=== PATIENT | male | born 1950 | race Caucasian/White ===

== ENCOUNTER 2016-09-30 17:16 | Observation (INO) | payer OTHER ==
[2016-09-30] MEDS ORDERED: RX INFO: IV CONTRAST WAS GIVEN 1 EACH MISC MISCELLANE PRN (18:05)
[2016-09-30] MEDS ORDERED: ONDANSETRON 4 MG/2 ML VIAL IVP STA ×2 (18:05→19:33)
[2016-09-30] MEDS ORDERED: MORPHINE SULFATE 4 MG/ML SYRINGE IVP STA ×2 (18:05→19:33)
[2016-09-30] MEDS ORDERED: DICYCLOMINE 20 MG TAB PO STA (18:05)
--- NOTE | 2016-09-30 18:53 | XR ---
EXAMINATION TYPE: XR chest 2V DATE OF EXAM: 09/30/2016 6:44 PM COMPARISON: NONE HISTORY: Cough. TECHNIQUE: Frontal and lateral views of the chest are obtained. FINDINGS: There is chronic parenchymal change without suspicious focal air space opacity, pleural ef fusion, or pneumothorax seen. The cardiac silhouette size is within normal limits. The osseous str uctures are intact. Cholecystectomy clips are noted on lateral view. IMPRESSION: No suspicious acute infiltrate.
[2016-09-30 18:59] LABS: Basophils % (A) 1 %; CH 29.1; CHCM 35.1; Eosinophils # (A) 0.1 k/uL (0-0.7); Eosinophils % (A) 2 %; HCT 42.9 % (39.0-53.0); HDW 3.41; HGB 14.6 gm/dL (13.0-17.5); Luc # (Auto) 0.24; Luc % (Auto) 4; Lymphocytes % (A) 14 %; MCH 28.5 pg (25.0-35.0); MCHC 34.1 g/dL (31.0-37.0); MCV 83.5 fL (80.0-100.0); Monocytes # (A) 0.6 k/uL (0-1.0); Monocytes % (A) 8 %; Neutrophils % (A) 72 %; Poikilocytosis Slight; RBC 5.14 m/uL (4.30-5.90); RDW 14.5 % (11.5-15.5); WBC (Perox) 6.93
--- NOTE | 2016-09-30 19:00 | ED ---
Abdominal Pain HPI - General Chief Complaint: Abdominal Pain Stated Complaint: Abd Pain Time Seen by Provider: 09/30/16 17:46 Source: patient Mode of arrival: ambulatory Limitations: no limitations - History of Present Illness Initial Comments: The patient is a 66-year-old male who presents to the ED with a chief complaint of abdominal pain. Patient states that the pain is located in the left lower quadrant. He describes it as crampy in nature. He states that sometimes it is associated with sharp pains. Patient states that the pain has been associated with loose bowel movements. He states that he has also had the urge to go to the bathroom but felt like he has been unable to have large bowel movements. Patient denies any history of diverticulitis. Notes that he does have a history of colonoscopy with evidence of diverticulosis. Patient has a history of hepatitis C status post liver transplant. His transplant doctor is Dr. Rdz from [facility]. He follows with Dr. Guerrero from Gastroenterology here in [place]. Patient notes that he has not had any fevers or chills. He does also notes that he's had an increased cough recently. He states that he's been taking his Lasix as directed. Patient denies any alcohol use. He denies any smoking. Denies any sick contacts. Denies any recent antibiotic use. Denies any history of C. diff. - Related Data Home Medications Medication Instructions Recorded Confirmed Aspirin 81 mg PO HS 07/04/14 09/30/16 Cetirizine HCl [Zyrtec] 10 mg PO QAM 07/04/14 09/30/16 Tamsulosin HCl [Flomax] 0.4 mg PO HS 07/04/14 09/30/16 Atorvastatin Calcium [Lipitor] 20 mg PO QAM 09/30/16 09/30/16 Cholecalciferol [Vitamin D3] 2,000 unit PO DAILY 09/30/16 09/30/16 Finasteride [Proscar] 5 mg PO DAILY 09/30/16 09/30/16 Furosemide [Lasix] 20 mg PO DAILY PRN 09/30/16 09/30/16 Insulin Aspart (For Pump) [NovoLOG 0.01 unit SQ-PUMP CONTINUOUS 09/30/16 (For Pump)] Magnesium Oxide [Mag-Ox] 1,200 mg PO BID 09/30/16 09/30/16 Metoprolol Tartrate [Lopressor] 12.5 mg PO BID 09/30/16 09/30/16 Multivitamins, Thera [Multivitamin 1 tab PO DAILY 09/30/16 09/30/16 (formulary)] [place]-3 Fatty Acids/Fish Oil [Fish 2 cap PO DAILY 09/30/16 09/30/16 Oil 1,000 mg Softgel] Omeprazole 20 mg PO AC-BID 09/30/16 09/30/16 Tacrolimus [Prograf] 0.5 mg PO Q12H 09/30/16 09/30/16 Ursodiol [Actigall] 300 mg PO BID 09/30/16 09/30/16 Zortress 0.75mg 0.75 mg PO HS 09/30/16 09/30/16 Zortress 0.75mg 1.5 mg PO QAM 09/30/16 09/30/16 Allergies Allergy/AdvReac Type Severity Reaction Status Date / Time nifedipine [From Procardia] AdvReac Swelling Verified 09/30/16 22:45 Review of Systems ROS Statement: Those systems with pertinent positive or pertinent negative responses have been documented in the HPI. ROS Other: All systems not noted in ROS Statement are negative. Constitutional: Denies: fever, chills, weakness Eyes: Denies: eye pain ENT: Denies: ear pain, throat pain, dental pain Respiratory: Reports: cough. Denies: dyspnea, wheezes, hemoptysis, stridor Cardiovascular: Denies: chest pain, palpitations Endocrine: Denies: fatigue Gastrointestinal: Reports: abdominal pain (llq), nausea. Denies: vomiting, diarrhea, constipation Genitourinary: Denies: urgency, dysuria, frequency, hematuria Musculoskeletal: Denies: back pain Skin: Denies: rash, lesions Neurological: Denies: headache, weakness Psychiatric: Denies: anxiety, depression Past Medical History Past Medical History: Coronary Artery Disease (CAD), Cancer, Chest Pain / Angina , COPD, Diabetes Mellitus, Hypertension, Liver Disease, Prostate Disorder, Sleep Apnea/CPAP/BIPAP Additional Past Medical History / Comment(s): CPAP, hx 40%blockage heart, recent episode of chest pain while shoveling snow, insulin pump, hep C, skin cancer on leg History of Any Multi-Drug Resistant Organisms: None Reported Past Surgical History: Orthopedic Surgery Past Anesthesia/Blood Transfusion Reactions: No Reported Reaction Past Psychological History: No Psychological Hx Reported Smoking Status: Former smoker Past Alcohol Use History: None Reported Past Drug Use History: None Reported - Past Family History mother Family Medical History: Cancer Additional Family Medical History / Comment(s): ovarian Father Family Medical History: Congestive Heart Failure (CHF), Coronary Artery Disease (CAD) Additional Family Medical History / Comment(s): from CHF General Exam Limitations: no limitations General appearance: alert, in no apparent distress Head exam: Present: atraumatic, normocephalic Eye exam: Present: normal appearance, PERRL Pupils: Present: normal accommodation ENT exam: Present: normal exam, mucous membranes dry Neck exam: Present: normal inspection, full ROM Respiratory exam: Present: other (crackles appreciated bilaterally). Absent: wheezes, rales, rhonchi, stridor Cardiovascular Exam: Present: regular rate, normal rhythm GI/Abdominal exam: Present: soft, tenderness (LLQ), guarding (mild voluntary). Absent: distended, rebound, rigid Extremities exam: Present: normal inspection, full ROM. Absent: tenderness, pedal edema Neurological exam: Present: alert, oriented X3 Psychiatric exam: Present: normal affect, normal mood Skin exam: Present: warm, dry, intact Course Vital Signs 09/30/16 09/30/16 09/30/16 17:40 17:42 21:28 Temperature 99.1 F 98.0 F Pulse Rate 90 70 84 Respiratory 20 16 16 Rate Blood Pressure 181/84 137/83 156/93 O2 Sat by Pulse 98 99 98 Oximetry Medical Decision Making - Medical Decision Making Patient is a 66-year-old male who presents to the ED with a chief complaint of abdominal pain. Patient states that the pain is located in left lower quadrant. It has been present since earlier today. It has been gradually worsening over that time. Patient notes that he did have sensation noted to have a bowel movement yesterday. He is not a significant bowel movement since his discomfort began. Patient denies any dysuria or hematuria. Denies any history of ureteral stone. Patient cites nausea but denies any episodes of vomiting. Patient has known history of hepatitis C status post multiple therapies. Patient is also status post liver transplant. She has known history of diverticulosis. Check CT abdomen and pelvis to rule out possibility of diverticulitis. Patient is also on rejection medications that high risk of other infectious process. Patient will be tested for C. diff, though I do have low suspicion that this is the underlying cause of the patient's problems. Provide patient with Morphine, Bentyl, Zofran. Hold on IV fluids until after chest x-ray is returned. 7:36 PM The patient states that his pain is somewhat improved after receiving Morphine and Zofran but has not completely resolved. Patient currently going to CT. Will re-dose with pain medication once he returns. 8:56 PM Updated patient and his of overall findings. There is evidence of diverticulitis on CT Abd/Pelvis. Given that the patient is on chronic immunosuppressant medication secondary to his transplant history, I believe that the patient would benefit from hospitalization. Patient will be treated with Rocephin and Flagyl. [place] and Dilaudid for pain control. Patient and his are amenable to this plan. Spoke with Elva, the PA for Dr. Mccord, who accepts admission of the patient. - Lab Data Result diagrams: 09/30/16 18:25 09/30/16 18:25 Lab Results 09/30/16 09/30/16 09/30/16 Range/Units 18:25 18:25 18:25 WBC 7.0 (3.8-10.6) k/uL RBC 5.14 (4.30-5.90) m/uL Hgb 14.6 (13.0-17.5) gm/dL Hct 42.9 (39.0-53.0) % MCV 83.5 (80.0-100.0) fL MCH 28.5 (25.0-35.0) pg MCHC 34.1 (31.0-37.0) g/dL RDW 14.5 (11.5-15.5) % Plt Count 178 (150-450) k/uL Neutrophils % 72 % Lymphocytes % 14 % Monocytes % 8 % Eosinophils % 2 % Basophils % 1 % Neutrophils # 5.0 (1.3-7.7) k/uL Lymphocytes # 1.0 (1.0-4.8) k/uL Monocytes # 0.6 (0-1.0) k/uL Eosinophils # 0.1 (0-0.7) k/uL Basophils # 0.0 (0-0.2) k/uL Poikilocytosis Slight Sodium 140 (137-145) mmol/L Potassium 3.8 (3.5-5.1) mmol/L Chloride 106 (98-107) mmol/L Carbon Dioxide 27 (22-30) mmol/L Anion Gap 7 mmol/L BUN 17 (9-20) mg/dL Creatinine 0.97 (0.66-1.25) mg/dL Est GFR (MDRD) Af Amer >60 (>60 ml/min/1.73 sqM) Est GFR (MDRD) Non-Af >60 (>60 ml/min/1.73 sqM) Glucose 149 H (74-99) mg/dL Plasma Lactic Acid Woo 1.3 (0.7-2.0) mmol/L Calcium 8.7 (8.4-10.2) mg/dL Magnesium 1.9 (1.6-2.3) mg/dL Total Bilirubin 0.8 (0.2-1.3) mg/dL AST 56 (17-59) U/L ALT 73 H (21-72) U/L Alkaline Phosphatase 112 (38-126) U/L Total Protein 6.5 (6.3-8.2) g/dL Albumin 3.6 (3.5-5.0) g/dL Urine Color Urine Appearance (Clear) Urine pH (5.0-8.0) Ur Specific [place] (1.001-1.035) Urine Protein (Negative) Urine Glucose (UA) (Negative) Urine Ketones (Negative) Urine Blood (Negative) Urine Nitrite (Negative) Urine Bilirubin (Negative) Urine Urobilinogen (<2.0) mg/dL Ur Leukocyte Esterase (Negative) Urine RBC (0-5) /hpf 09/30/16 Range/Units 18:25 WBC (3.8-10.6) k/uL RBC (4.30-5.90) m/uL Hgb (13.0-17.5) gm/dL Hct (39.0-53.0) % MCV (80.0-100.0) fL MCH (25.0-35.0) pg MCHC (31.0-37.0) g/dL RDW (11.5-15.5) % Plt Count (150-450) k/uL Neutrophils % % Lymphocytes % % Monocytes % % Eosinophils % % Basophils % % Neutrophils # (1.3-7.7) k/uL Lymphocytes # (1.0-4.8) k/uL Monocytes # (0-1.0) k/uL Eosinophils # (0-0.7) k/uL Basophils # (0-0.2) k/uL Poikilocytosis Sodium (137-145) mmol/L Potassium (3.5-5.1) mmol/L Chloride (98-107) mmol/L Carbon Dioxide (22-30) mmol/L Anion Gap mmol/L BUN (9-20) mg/dL Creatinine (0.66-1.25) mg/dL Est GFR (MDRD) Af Amer (>60 ml/min/1.73 sqM) Est GFR (MDRD) Non-Af (>60 ml/min/1.73 sqM) Glucose (74-99) mg/dL Plasma Lactic Acid Woo (0.7-2.0) mmol/L Calcium (8.4-10.2) mg/dL Magnesium (1.6-2.3) mg/dL Total Bilirubin (0.2-1.3) mg/dL AST (17-59) U/L ALT (21-72) U/L Alkaline Phosphatase (38-126) U/L Total Protein (6.3-8.2) g/dL Albumin (3.5-5.0) g/dL Urine Color Yellow Urine Appearance Clear (Clear) Urine pH 6.0 (5.0-8.0) Ur Specific [place] 1.014 (1.001-1.035) Urine Protein 1+ H (Negative) Urine Glucose (UA) Negative (Negative) Urine Ketones Negative (Negative) Urine Blood Negative (Negative) Urine Nitrite Negative (Negative) Urine Bilirubin Negative (Negative) Urine Urobilinogen <2.0 (<2.0) mg/dL Ur Leukocyte Esterase Negative (Negative) Urine RBC <1 (0-5) /hpf Disposition Clinical Impression: Acute diverticulitis, Hx of liver transplant Disposition: ADMITTED IP TO THIS [facility] Condition: Good Decision to Admit Reason: Admit from EC Decision Date: 09/30/16 Decision Time: 20:56
[2016-09-30 19:05] LABS: Appearance,Urine Clear (Clear); Bilirubin,Urine Negative (Negative); Glucose,Urine (UA) Negative (Negative); Ketones,Urine Negative (Negative); Leukocyte Esterase,Urine Negative (Negative); Nitrite,Urine Negative (Negative); Particle Count 447; Protein,Urine 1+ (Negative); RBC,Urine <1 /hpf (0-5); Specific Gravity,Urine 1.014 (1.001-1.035); UA Billing (MACRO vs. MICRO) MICRO; Urobilinogen,Urine <2.0 mg/dL (<2.0)
[2016-09-30 19:11] LABS: ALT 73 U/L (21-72); AST 56 U/L (17-59); Alkaline Phosphatase 112 U/L (38-126); Anion Gap 7 mmol/L; Blood Urea Nitrogen 17 mg/dL (9-20); Calcium 8.7 mg/dL (8.4-10.2); Carbon Dioxide 27 mmol/L (22-30); Chloride 106 mmol/L (98-107); Glucose 149 mg/dL (74-99); Magnesium 1.9 mg/dL (1.6-2.3); Non-African American GFR(MDRD) >60 (>60 ml/min/1.73 sqM); Potassium 3.8 mmol/L (3.5-5.1); Sodium 140 mmol/L (137-145); Total Bilirubin 0.8 mg/dL (0.2-1.3); Total Protein 6.5 g/dL (6.3-8.2)
--- NOTE | 2016-09-30 20:14 | CT ---
EXAMINATION TYPE: CT abdomen pelvis w con DATE OF EXAM: 09/30/2016 7:49 PM COMPARISON: MRI liver February 18, 2011 HISTORY: Left Lower Quadrant pain with diarrhea CT DLP: 1516.2 mGycm, Automated Exposure Control for Dose Reduction was Utilized. CONTRAST: CT scan of the abdomen and pelvis is performed without oral and with IV Contrast, patient injected wi th 100 mL of Omnipaque 300. FINDINGS: LUNG BASES: Scattered areas of atelectasis felt present in both lung bases. Some coronary artery calc ification in the proximal RCA is seen. LIVER/GB: There is nonspecific 1.6 cm hypodense lesion right hepatic lobe on axial image 17. This is not clearly identified on prior MRI but liver protocol was suboptimal at that time. Consider nonemerg ent follow-up. Cholecystectomy clips are seen. There are multiple surgical clips anterior to the IVC. Mild fat stranding at level of anjali hepatis is seen, nonspecific finding, etiology uncertain. PANCREAS: No significant abnormality is seen. SPLEEN: No significant abnormality is seen. ADRENALS: No significant abnormality is seen. KIDNEYS: No significant abnormality is seen. BOWEL: Evaluation bowel is suboptimal secondary to lack of enteric contrast. Stomach is poorly disten ded. There is no suspicious small bowel dilatation. Normal-appearing appendix is seen from cecum. The re is mild to moderate wall thickening in the left and sigmoid colon extending to the rectum. Some di verticula are seen most prominent in the sigmoid colon. An acute long segment colitis needs to BE con sidered. Minimal surrounding fat stranding is present in the sigmoid colon at level of most prominent diverticula more prominent right of midline. No pneumoperitoneum is seen. No well-formed fluid colle ction or abscess is noted. PROSTATE/SEMINAL VESICLES: No gross abnormality seen. LYMPH NODES: No greater than 1cm abdominal or pelvic lymph nodes are appreciated. OSSEOUS STRUCTURES: Multilevel spurring throughout the spine is present. Facet arthropathy lower lumb ar levels is seen. OTHER: Mild to moderate calcified atherosclerotic change of aorta and branch vessels is seen. IMPRESSION: 1. A mild acute colitis suspected from splenic flexure to rectum, differential includes inflammatory, ischemic, and infectious etiologies. More focal mild acute diverticulitis is suspected in the mid si gmoid colon the lower abdomen/upper pelvis. Clinical correlation advised. 2. New nonspecific 1.7 cm low dense lesion right hepatic dome, consider further investigation with no nemergent multiphasic CT or MRI liver protocol to further evaluate.
[2016-09-30] MEDS ORDERED: metroNIDAZOLE-NS PMX 500 MG in SALINE 1 100ML.BAG IVPB STA (20:51)
[2016-09-30] MEDS ORDERED: SODIUM CHLORIDE 0.9% 1,000 ML IV STA (20:52)
[2016-09-30] MEDS ORDERED: ONDANSETRON 4 MG/2 ML VIAL IVP PRN (20:56)
[2016-09-30] MEDS ORDERED: NALOXONE 0.4 MG/ML 1 ML VIAL IV PRN (20:56)
[2016-09-30] MEDS ORDERED: HYDROcodone/APAP 5-325MG 1 EACH TAB PO PRN (20:56)
[2016-09-30 22:17] VITALS: BMI 32.1
[2016-09-30] MEDS: HYDROmorphone 1 MG/ML 1 ML SYRINGE IV PRN (23:02)
[2016-09-30 23:09] LABS: Glucose,Whole Blood 116 mg/dL (75-99)
[2016-10-01] MEDS: HYDROmorphone 1 MG/ML 1 ML SYRINGE IV PRN ×2 (03:08→06:14)
[2016-10-01] MEDS: metroNIDAZOLE-NS PMX 500 MG in SALINE 1 100ML.BAG IVPB SCH ×2 (05:12→12:49)
[2016-10-01 07:35] LABS: Glucose,Whole Blood 106 mg/dL (75-99)
[2016-10-01 07:58] VITALS: BP 127/74; PULSE 79; RESP 14; TEMP 97.5
[2016-10-01] MEDS ORDERED: FUROSEMIDE 20 MG TAB PO PRN (08:46)
[2016-10-01] MEDS ORDERED: Insulin Aspart (For Pump) 100 UNIT/ML VIAL SQ-PUMP SCH (09:00)
[2016-10-01] MEDS ORDERED: PANTOPRAZOLE 40 MG TABLET PO SCH (09:00)
[2016-10-01] MEDS ORDERED: URSODIOL 300 MG CAP PO SCH ×2 (09:00→17:30)
[2016-10-01] MEDS ORDERED: METOPROLOL TARTRATE 12.5 MG TAB PO SCH (09:00)
[2016-10-01] MEDS ORDERED: LORATADINE 10 MG TAB PO SCH (09:00)
[2016-10-01] MEDS ORDERED: NON-FORMULARY DRUG (Omega-3 Fatty Acids/Fish Oil [Fish Oil 1,000 Mg Softgel] 2 CAP) PO SCH (09:00)
[2016-10-01] MEDS ORDERED: ATORVASTATIN 20 MG TAB PO SCH (09:00)
[2016-10-01] MEDS ORDERED: FINASTERIDE 5 MG TAB PO SCH (09:00)
[2016-10-01] MEDS ORDERED: ZORTRESS PO SCH (09:00)
[2016-10-01] MEDS ORDERED: TACROLIMUS 0.5 MG CAP PO SCH (09:00)
[2016-10-01] MEDS ORDERED: MAGNESIUM OXIDE 400 MG TAB PO SCH (09:00)
[2016-10-01 09:37] LABS: INR 1.1 (<1.1); Prothrombin Time 10.7 sec (9.0-12.0)
[2016-10-01 09:43] LABS: ALT 80 U/L (21-72); AST 77 U/L (17-59); Alkaline Phosphatase 168 U/L (38-126); Anion Gap 4 mmol/L; Blood Urea Nitrogen 14 mg/dL (9-20); Calcium 7.8 mg/dL (8.4-10.2); Carbon Dioxide 29 mmol/L (22-30); Chloride 107 mmol/L (98-107); Glucose 164 mg/dL (74-99); Magnesium 1.8 mg/dL (1.6-2.3); Non-African American GFR(MDRD) >60 (>60 ml/min/1.73 sqM); Phosphorous 2.9 mg/dL (2.5-4.5); Potassium 3.8 mmol/L (3.5-5.1); Sodium 140 mmol/L (137-145); Total Bilirubin 1.3 mg/dL (0.2-1.3); Total Protein 5.8 g/dL (6.3-8.2)
[2016-10-01 10:08] LABS: Aty Lym Flag Slight; CHCM 34.6; HCT 40.5 % (39.0-53.0); HDW 3.49; HGB 13.7 gm/dL (13.0-17.5); MCH 28.5 pg (25.0-35.0); MCHC 33.9 g/dL (31.0-37.0); MCV 84.3 fL (80.0-100.0); Mean Platelet Volume 7.3; Poikilocytosis Slight; RDW 14.3 % (11.5-15.5); WBC 4.9 k/uL (3.8-10.6); WBC (Perox) 4.59
[2016-10-01] MEDS ORDERED: INSULIN PUMP ACTIVE INSULIN 1 EACH MISC MISCELLANE PRN (11:05)
[2016-10-01] MEDS ORDERED: INSULIN LISPRO (humaLOG) 300 UNIT/3 ML VIAL SQ PRN (11:05)
[2016-10-01] MEDS ORDERED: INSULIN PUMP BASAL RATES 1 EACH MISC MISCELLANE PRN (11:05)
[2016-10-01] MEDS ORDERED: INSULIN PUMP TARGET GLUCOSE 1 EACH MISC MISCELLANE PRN (11:05)
[2016-10-01] MEDS ORDERED: INSPUCOR MISCELLANE PRN (11:05)
[2016-10-01 11:37] LABS: Add Differential Manual Differential
[2016-10-01 11:42] LABS: Nucleated Red Blood Cells 0 /100 WBC (0-0); Total Cells Counted 100
[2016-10-01] MEDS ORDERED: MULTIVITAMINS, THERA 1 EACH TAB PO SCH (12:00)
[2016-10-01] MEDS ORDERED: CHOLECALCIFEROL 1,000 UNIT TAB PO SCH (12:00)
[2016-10-01 12:02] LABS: Glucose,Whole Blood 117 mg/dL (75-99)
[2016-10-01] MEDS ORDERED: INSULIN PUMP MEAL BOLUS 1 UNIT MISC MISCELLANE SCH (12:30)
--- NOTE | 2016-10-01 14:04 | HP ---
DATE OF ADMISSION: This dictation is both H&P and Discharge Summary. Patient is a 66-year-old, came into the Emergency Department with complaints of left lower quadrant crampy abdominal pain about 9/10 in severity, which improved at this point of time. Patient is found to have diverticulitis and patient was having diarrhea. Patient had one episode of minimal blood in the stools today. Patient's overall diarrhea has improved. Patient has very minimal blood in the stools and patient's pain is improved. Patient was started on Rocephin and metronidazole with improvement in his symptoms. The other incidental finding on the CT was there was a suspicious lesion on the liver. Patient has a liver transplant. Patient had a recent MRI. Patient apparently had scarring. I extensively counseled the patient. Patient needs to be made aware of this scarring. Patient may have scarring of the liver, for which patient underwent an MRI a couple of months ago. Because of that reason, initially ordered MRCP, which I canceled it and I asked him to follow up with transplant specialist in [facility] and make them aware of these and will also follow with medical records from here to [facility]. Patient denied any fever, chills. Patient denied any nausea, vomiting at this point of time. Patient's symptoms significantly improved. Patient will be discharged on one more week of antibiotics. Patient has very minimal elevation of AST and ALT secondary to chronic hep C. Will repeat those labs in about 3 days, make sure they are not going up and patient will be discharged. REVIEW OF SYSTEMS: CONSTITUTIONAL: No fever, no malaise, no fatigue. HEENT: No recent visual problems or hearing problems. Denied any sore throat. CARDIOVASCULAR: No chest pain, orthopnea, PND, no palpitations, no syncope. PULMONARY: No shortness of breath, no cough, no hemoptysis. GASTROINTESTINAL: As described in HPI. NEUROLOGICAL: No headaches, no weakness, no numbness. HEMATOLOGICAL: Denies any bleeding or petechiae. GENITOURINARY: Denies any burning micturition, frequency, or urgency. MUSCULOSKELETAL/RHEUMATOLOGICAL: Denies any joint pain, swelling, or any muscle pain. ENDOCRINE: Denies any polyuria or polydipsia. The rest of the 14 point review of systems is negative. Home medications include: 1. Aspirin. 2. Cetirizine. 3. Tamsulosin. 4. Atorvastatin. 5. Cholecalciferol. 6. Finasteride. 7. Lasix on as-needed basis. 8. Insulin pump. Patient has an insulin pump for diabetes mellitus. 9. Metoprolol. 10. Magnesium oxide. 11. [place]-3 fatty acids. 12. Tacrolimus. 13. Ursodiol. 14. Zortress. ALLERGIES: Allergic to NIFEDIPINE. PAST MEDICAL HISTORY: Significant for coronary artery disease. Patient has hepatocellular carcinoma secondary to hepatitis C and patient is status post embolization, liver transplantation and diabetes mellitus, benign prostatic hypertrophy, sleep apnea, morbid obesity. SOCIAL HISTORY: Former smoker. Quit smoking years ago. Denied any alcohol abuse or any drug abuse. FAMILY HISTORY: Mother had ovarian cancer and father had congestive heart failure, coronary artery disease, from congestive heart failure. PHYSICAL EXAMINATION: Temperature 97.5, pulse of 79, respiratory rate of 14, blood pressure is 127/74, saturating at 97% on room air. GENERAL EXAMINATION: Alert and oriented x3, morbidly obese. HEENT: Pupils are round and equally reacting to light. EOMI. No scleral icterus. No conjunctival pallor. Normocephalic, atraumatic. No pharyngeal erythema. No thyromegaly. CARDIOVASCULAR: S1 and S2 present. No murmurs, rubs, or gallops. PULMONARY: Chest is clear to auscultation, no wheezing or crackles. ABDOMEN: Soft, nontender, nondistended, normoactive bowel sounds. No palpable organomegaly. MUSCULOSKELETAL: No joint swelling or deformity. EXTREMITIES: No cyanosis, clubbing, or pedal edema. NEUROLOGICAL: Gross neurological examination did not reveal any focal deficits. SKIN: No rashes. LABORATORY DATA: CBC, CMP are abnormal for mildly elevated AST and ALT of 77 and 80 respectively. Minimally elevated alkaline phosphatase as well. CT of the abdomen was reviewed, showed some small sigmoid diverticulitis. Chest x-ray did not show any significant abnormality. ASSESSMENT AND PLAN: 1. Mild sigmoid diverticulitis and patient will be discharged on antibiotics as mentioned above. If patient starts having pain again and for more gastrointestinal bleed, patient will need to call Dr. Guerrero's office or come back to ER. 2. Small suspicious lesion in the liver, which is secondary to scarring. Patient is status post hepatic transplant. 3. Hepatocellular carcinoma. History of hepatitis C, chronic hep C for which patient is [place]. 4. Diabetes mellitus for which patient is on insulin pump with very well-controlled blood sugars. 5. Sleep apnea. Patient will continue with his CPAP machine. 6. Hypertension, fairly controlled. Patient will need to continue with his home medications. Patient is on immunosuppressants with tacrolimus and Zortress, post liver transplant that will be managed by liver transplant specialist in [facility] and patient will be discharged today. 7. Benign prostatic hypertrophy. I will repeat liver enzymes in about 3 days. DISCHARGE DIET: Cardiac ADA 1800 and hepatic diet. Follow up with Rico Prabhakra in 3 to 7 days. Follow with [facility] liver specialist in a about a week. Activity as tolerated.
[2016-10-01] MEDS ORDERED: ZORTRESS 0.75 MG PO SCH (21:00)
[2016-10-01] MEDS ORDERED: ASPIRIN 81 MG CHEW PO SCH (21:00)
[2016-10-01] MEDS ORDERED: TAMSULOSIN 0.4 MG CAP.ER.24H PO SCH (21:00)
== END 2016-10-01 14:57 | disposition home or self-care (01) ==
LOC: EC 17:16 → UNDOADMIN 20:56 → 4MS4W 20:56 → INTOOBSV 20:56 → 4MS4W 10-01 11:53 → UNDOADMIN 10-01 11:53
PROVIDERS: ADMIT Internal Medicine; ATTEND Internal Medicine
DX: K57.32 Diverticulitis of large intestine without perforation or abscess without bleeding (principal); Z79.82 Long term (current) use of aspirin; Z79.899 Other long term (current) drug therapy; Z88.8 Allergy status to other drugs, medicaments and biological substances; Z87.891 Personal history of nicotine dependence; I25.10 Atherosclerotic heart disease of native coronary artery without angina pectoris; J44.9 Chronic obstructive pulmonary disease, unspecified; E11.9 Type 2 diabetes mellitus without complications; I10 Essential (primary) hypertension; G47.30 Sleep apnea, unspecified; Z99.89 Dependence on other enabling machines and devices; C44.90 Unspecified malignant neoplasm of skin, unspecified; Z96.41 Presence of insulin pump (external) (internal); Z82.49 Family history of ischemic heart disease and other diseases of the circulatory system; Z94.4 Liver transplant status; B18.2 Chronic viral hepatitis C; E66.01 Morbid (severe) obesity due to excess calories; N40.0 Benign prostatic hyperplasia without lower urinary tract symptoms; C22.0 Liver cell carcinoma; Z68.33 Body mass index [BMI] 33.0-33.9, adult; Z79.4 Long term (current) use of insulin
CPT/HCPCS: 96365; 96366; 96367 ×2; 96376; 96375; 99285; 36415; 80053 ×2; 83605; 83735 ×2; 84100; 85025 ×2; 85610; 81001; 87324; 82105; 71020; 74177; G0378 ×2; J2270; J2405; J0696; J1170 ×2; Q9967

== ENCOUNTER 2016-10-23 19:16 | Observation (INO) | payer OTHER ==
--- NOTE | 2016-10-23 19:45 | ED ---
SOB HPI - General Chief Complaint: Shortness of Breath Stated Complaint: SOB/Chest Pressure Time Seen by Provider: 10/23/16 19:37 Source: patient Mode of arrival: ambulatory Limitations: no limitations - History of Present Illness Initial Comments: This patient is 66-year-old man presenting with complaint of shortness of breath and cough. Patient states that he has been being treated as an outpatient for pneumonia for nearly 2 weeks. He states he is completing his second course of antibiotics. The patient feels that he has not had improvement. Patient's symptoms are worse if he is lying flat or exerting himself, better if he is sitting upright. He has not noted fevers or chills. He states the cough is not productive for the most part. MD Complaint: shortness of breath, cough Onset/Timin -: week(s) Severity: mild Consistency: constant Improves With: upright position Worsens With: lying flat Associated Symptoms: denies other symptoms - Related Data Home Medications Medication Instructions Recorded Confirmed Aspirin 81 mg PO HS 07/04/14 10/23/16 Cetirizine HCl [Zyrtec] 10 mg PO QAM 07/04/14 10/23/16 Tamsulosin HCl [Flomax] 0.4 mg PO HS 07/04/14 10/23/16 Atorvastatin Calcium [Lipitor] 20 mg PO QAM 09/30/16 10/23/16 Cholecalciferol [Vitamin D3] 2,000 unit PO DAILY 09/30/16 10/23/16 Finasteride [Proscar] 5 mg PO DAILY 09/30/16 10/23/16 Furosemide [Lasix] 20 mg PO DAILY PRN 09/30/16 10/23/16 Insulin Aspart (For Pump) [NovoLOG See Protocol SQ-PUMP CONTINUOUS 09/30/16 (For Pump)] Magnesium Oxide [Mag-Ox] 1,200 mg PO BID 09/30/16 10/23/16 Metoprolol Tartrate [Lopressor] 12.5 mg PO BID 09/30/16 10/23/16 Multivitamins, Thera [Multivitamin 1 tab PO DAILY 09/30/16 10/23/16 (formulary)] [place]-3 Fatty Acids/Fish Oil [Fish 2 cap PO DAILY 09/30/16 10/23/16 Oil 1,000 mg Softgel] Omeprazole 20 mg PO AC-BID 09/30/16 10/23/16 Tacrolimus [Prograf] 0.5 mg PO Q12H 09/30/16 10/23/16 Ursodiol [Actigall] 300 mg PO BID 09/30/16 10/23/16 Zortress 0.75mg 0.75 mg PO HS 09/30/16 10/23/16 Zortress 0.75mg 1.5 mg PO QAM 09/30/16 10/23/16 Fluticasone Propionate [Flonase 2 spray EA NOSTRIL QAM 10/23/16 10/23/16 Allergy Relief] Ipratropium-Albuterol Nebulize 3 ml INHALATION RT-QID PRN 10/23/16 10/23/16 [Duoneb 0.5 mg-3 mg/3 ml Soln] Levofloxacin [Levaquin] 500 mg PO DAILY 10/23/16 10/23/16 predniSONE See Taper PO DAILY 10/23/16 10/23/16 Allergies Allergy/AdvReac Type Severity Reaction Status Date / Time nifedipine [From Procardia] AdvReac Swelling Verified 10/23/16 20:02 Review of Systems ROS Statement: Those systems with pertinent positive or pertinent negative responses have been documented in the HPI. ROS Other: All systems not noted in ROS Statement are negative. Constitutional: Reports: weakness (Generalized). Denies: fever, chills Respiratory: Reports: cough, dyspnea. Denies: hemoptysis Cardiovascular: Reports: dyspnea on exertion, orthopnea. Denies: chest pain, palpitations, edema, syncope Gastrointestinal: Denies: abdominal pain, vomiting, diarrhea, melena, hematochezia Genitourinary: Denies: dysuria, hematuria Musculoskeletal: Denies: back pain Skin: Reports: rash Neurological: Denies: headache, weakness, numbness Past Medical History Past Medical History: Coronary Artery Disease (CAD), Cancer, Chest Pain / Angina , COPD, Diabetes Mellitus, Hypertension, Liver Disease, Prostate Disorder, Sleep Apnea/CPAP/BIPAP Additional Past Medical History / Comment(s): CPAP, hx 40%blockage heart, recent episode of chest pain while shoveling snow, insulin pump, hep C, skin cancer on leg History of Any Multi-Drug Resistant Organisms: None Reported Past Surgical History: Orthopedic Surgery Additional Past Surgical History / Comment(s): Liver transplant Past Anesthesia/Blood Transfusion Reactions: No Reported Reaction Past Psychological History: No Psychological Hx Reported Smoking Status: Former smoker Past Alcohol Use History: None Reported Past Drug Use History: None Reported - Past Family History Father Family Medical History: Congestive Heart Failure (CHF), Coronary Artery Disease (CAD) Additional Family Medical History / Comment(s): from CHF mother Family Medical History: Cancer Additional Family Medical History / Comment(s): ovarian General Exam Limitations: no limitations General appearance: alert, in no apparent distress Head exam: Present: atraumatic, normocephalic Eye exam: Present: normal appearance. Absent: scleral icterus, conjunctival injection ENT exam: Present: normal oropharynx Respiratory exam: Present: normal lung sounds bilaterally. Absent: respiratory distress, wheezes, rales, rhonchi, stridor Cardiovascular Exam: Present: regular rate, normal rhythm, normal heart sounds. Absent: systolic murmur, diastolic murmur, rubs, gallop GI/Abdominal exam: Present: soft. Absent: distended, tenderness, guarding, rebound, mass Extremities exam: Present: normal inspection, normal capillary refill. Absent: pedal edema, calf tenderness Back exam: Present: normal inspection. Absent: CVA tenderness (R), CVA tenderness (L) Neurological exam: Present: alert Skin exam: Present: warm, dry, intact, normal color. Absent: rash Course Vital Signs 10/23/16 10/23/16 10/23/16 19:20 21:09 21:19 Temperature 98.7 F Pulse Rate 92 80 88 Respiratory 18 Rate Blood Pressure 190/93 O2 Sat by Pulse 97 Oximetry Medical Decision Making - Lab Data Result diagrams: 10/23/16 19:10 10/23/16 19:10 Lab Results 10/23/16 10/23/16 10/23/16 Range/Units 19:10 19:10 19:10 WBC 10.1 (3.8-10.6) k/uL RBC 5.42 (4.30-5.90) m/uL Hgb 15.6 (13.0-17.5) gm/dL Hct 46.7 (39.0-53.0) % MCV 86.2 (80.0-100.0) fL MCH 28.8 (25.0-35.0) pg MCHC 33.4 (31.0-37.0) g/dL RDW 14.0 (11.5-15.5) % Plt Count 179 (150-450) k/uL Neutrophils % 84 % Lymphocytes % 8 % Monocytes % 6 % Eosinophils % 1 % Basophils % 0 % Neutrophils # 8.5 H (1.3-7.7) k/uL Lymphocytes # 0.8 L (1.0-4.8) k/uL Monocytes # 0.6 (0-1.0) k/uL Eosinophils # 0.1 (0-0.7) k/uL Basophils # 0.0 (0-0.2) k/uL PT 10.2 (9.0-12.0) sec INR 1.0 (<1.1) APTT 21.9 L (22.0-30.0) sec D-Dimer 0.36 (<0.60) mg/L FEU Sodium 139 (137-145) mmol/L Potassium 4.3 (3.5-5.1) mmol/L Chloride 108 H (98-107) mmol/L Carbon Dioxide 20 L (22-30) mmol/L Anion Gap 11 mmol/L BUN 27 H (9-20) mg/dL Creatinine 1.02 (0.66-1.25) mg/dL Est GFR (MDRD) Af Amer >60 (>60 ml/min/1.73 sqM) Est GFR (MDRD) Non-Af >60 (>60 ml/min/1.73 sqM) Glucose 246 H (74-99) mg/dL POC Glucose (mg/dL) (75-99) mg/dL POC Glu [employer] ID Calcium 9.1 (8.4-10.2) mg/dL Total Bilirubin 0.7 (0.2-1.3) mg/dL AST 47 (17-59) U/L ALT 73 H (21-72) U/L Alkaline Phosphatase 78 (38-126) U/L NT-Pro-B Natriuret Pep pg/mL Total Protein 6.6 (6.3-8.2) g/dL Albumin 3.8 (3.5-5.0) g/dL 10/23/16 10/23/16 Range/Units 19:10 21:17 WBC (3.8-10.6) k/uL RBC (4.30-5.90) m/uL Hgb (13.0-17.5) gm/dL Hct (39.0-53.0) % MCV (80.0-100.0) fL MCH (25.0-35.0) pg MCHC (31.0-37.0) g/dL RDW (11.5-15.5) % Plt Count (150-450) k/uL Neutrophils % % Lymphocytes % % Monocytes % % Eosinophils % % Basophils % % Neutrophils # (1.3-7.7) k/uL Lymphocytes # (1.0-4.8) k/uL Monocytes # (0-1.0) k/uL Eosinophils # (0-0.7) k/uL Basophils # (0-0.2) k/uL PT (9.0-12.0) sec INR (<1.1) APTT (22.0-30.0) sec D-Dimer (<0.60) mg/L FEU Sodium (137-145) mmol/L Potassium (3.5-5.1) mmol/L Chloride (98-107) mmol/L Carbon Dioxide (22-30) mmol/L Anion Gap mmol/L BUN (9-20) mg/dL Creatinine (0.66-1.25) mg/dL Est GFR (MDRD) Af Amer (>60 ml/min/1.73 sqM) Est GFR (MDRD) Non-Af (>60 ml/min/1.73 sqM) Glucose (74-99) mg/dL POC Glucose (mg/dL) 177 H (75-99) mg/dL POC Glu [employer] ID [email or web address], Jade Calcium (8.4-10.2) mg/dL Total Bilirubin (0.2-1.3) mg/dL AST (17-59) U/L ALT (21-72) U/L Alkaline Phosphatase (38-126) U/L NT-Pro-B Natriuret Pep 69 pg/mL Total Protein (6.3-8.2) g/dL Albumin (3.5-5.0) g/dL - EKG Data -: EKG Interpreted by Fl EKG shows normal: sinus rhythm (Rate 80 bpm), axis (Normal), intervals (Normal) , QRS complexes (Normal), ST-T waves (Normal) Rate: normal Interpretation: normal EKG Disposition Clinical Impression: Acute exacerbation of chronic obstructive airways disease Disposition: ADMITTED IP TO THIS HOSP Condition: Fair Referrals: Rico Prabhakar MD [Primary Care Provider] - 1-2 days
[2016-10-23] MEDS ORDERED: NITROGLYCERIN OINT 1 INCH/GM PACKET TOPICAL STA (19:58)
[2016-10-23] MEDS ORDERED: NITROGLYCERIN SL TABS 0.4 MG TAB SUBLINGUAL STA (19:58)
--- NOTE | 2016-10-23 20:20 | XR ---
EXAMINATION TYPE: XR chest 2V DATE OF EXAM: 10/23/2016 8:09 PM COMPARISON: 09/30/2016 HISTORY: Cough TECHNIQUE: Frontal and lateral views of the chest are obtained. FINDINGS: Heart and mediastinum are normal. Lungs are clear. Diaphragm is normal. There are chest le ads. Bony thorax is intact. IMPRESSION: Normal chest. No change.
[2016-10-23 20:35] LABS: Basophils % (A) 0 %; CH 28.5; CHCM 33.2; Eosinophils # (A) 0.1 k/uL (0-0.7); Eosinophils % (A) 1 %; HCT 46.7 % (39.0-53.0); HDW 3.06; HGB 15.6 gm/dL (13.0-17.5); Luc # (Auto) 0.11; Luc % (Auto) 1; Lymphocytes # (A) 0.8 k/uL (1.0-4.8); Lymphocytes % (A) 8 %; MCH 28.8 pg (25.0-35.0); MCHC 33.4 g/dL (31.0-37.0); MCV 86.2 fL (80.0-100.0); Mean Platelet Volume 7.6; Monocytes # (A) 0.6 k/uL (0-1.0); Monocytes % (A) 6 %; Neutrophils # (A) 8.5 k/uL (1.3-7.7); Neutrophils % (A) 84 %; RBC 5.42 m/uL (4.30-5.90); WBC 10.1 k/uL (3.8-10.6); WBC (Perox) 9.93
[2016-10-23 20:46] LABS: ALT 73 U/L (21-72); AST 47 U/L (17-59); Alkaline Phosphatase 78 U/L (38-126); Anion Gap 11 mmol/L; Blood Urea Nitrogen 27 mg/dL (9-20); Calcium 9.1 mg/dL (8.4-10.2); Carbon Dioxide 20 mmol/L (22-30); Chloride 108 mmol/L (98-107); Glucose 246 mg/dL (74-99); Non-African American GFR(MDRD) >60 (>60 ml/min/1.73 sqM); Potassium 4.3 mmol/L (3.5-5.1); Sodium 139 mmol/L (137-145); Total Bilirubin 0.7 mg/dL (0.2-1.3); Total Protein 6.6 g/dL (6.3-8.2)
[2016-10-23 20:55] LABS: Prothrombin Time 10.2 sec (9.0-12.0)
[2016-10-23 20:58] LABS: Partial Thromboplastin Time 21.9 sec (22.0-30.0)
[2016-10-23] MEDS ORDERED: ALBUTEROL NEBULIZED 2.5 MG/3 ML INHALATION STA (21:03)
[2016-10-23] MEDS ORDERED: INSULIN REGULAR 100 UNIT/ML VIAL SQ STA (21:05)
[2016-10-23 21:30] LABS: Glucose,Whole Blood 177 mg/dL (75-99)
[2016-10-23] MEDS ORDERED: ALBUTEROL NEBULIZED 2.5 MG/3 ML INHALATION PRN (21:30)
[2016-10-23] MEDS ORDERED: predniSONE 20 MG TAB PO STA (21:34)
[2016-10-23] MEDS ORDERED: FUROSEMIDE 20 MG TAB PO PRN (21:34)
[2016-10-23 23:22] VITALS: BMI 33.0
[2016-10-23] MEDS: TACROLIMUS 0.5 MG CAP PO SCH (23:37)
[2016-10-24] MEDS ORDERED: MELATONIN 3 MG TABLET PO PRN (00:20)
[2016-10-24 01:51] VITALS: RESP 16
[2016-10-24] MEDS: IPRATROPIUM-ALBUTEROL 3 ML NEB INHALATION SCH ×4 (07:45→20:12)
[2016-10-24] MEDS: PANTOPRAZOLE 40 MG TABLET PO SCH ×2 (08:54→18:12)
[2016-10-24] MEDS: ATORVASTATIN 20 MG TAB PO SCH (08:55)
[2016-10-24] MEDS: FINASTERIDE 5 MG TAB PO SCH (08:55)
[2016-10-24] MEDS: FLUTICASONE 50MCG/SPRAY NASAL 16GM EA NOSTRIL SCH (08:55)
[2016-10-24] MEDS: MAGNESIUM OXIDE 400 MG TAB PO SCH ×2 (08:56→20:04)
[2016-10-24] MEDS: CHOLECALCIFEROL 1,000 UNIT TAB PO SCH (08:58)
[2016-10-24] MEDS: predniSONE 20 MG TAB PO SCH (08:58)
[2016-10-24] MEDS: URSODIOL 300 MG CAP PO SCH ×2 (08:59→20:05)
[2016-10-24] MEDS: TACROLIMUS 0.5 MG CAP PO SCH ×2 (08:59→20:05)
[2016-10-24] MEDS ORDERED: NON-FORMULARY DRUG (Omega-3 Fatty Acids/Fish Oil [Fish Oil 1,000 Mg Softgel] 2 CAP) PO SCH (09:00)
[2016-10-24] MEDS ORDERED: ZORTRESS PO SCH (09:00)
[2016-10-24] MEDS ORDERED: LORATADINE 10 MG TAB PO SCH (09:00)
[2016-10-24] MEDS ORDERED: METOPROLOL TARTRATE 25 MG TAB PO SCH (09:00)
[2016-10-24] MEDS: MULTIVITAMINS, THERA 1 EACH TAB PO SCH (09:01)
[2016-10-24] MEDS: ENOXAPARIN 40 MG/0.4 ML SYRINGE SQ SCH (09:01)
[2016-10-24] MEDS: PREGABALIN 75 MG CAP PO SCH ×2 (11:17→20:14)
[2016-10-24] MEDS ORDERED: INSULIN LISPRO (humaLOG) 300 UNIT/3 ML VIAL SQ PRN (13:46)
[2016-10-24] MEDS ORDERED: INSULIN PUMP TARGET GLUCOSE 1 EACH MISC MISCELLANE PRN (13:46)
[2016-10-24] MEDS ORDERED: INSULIN PUMP ACTIVE INSULIN 1 EACH MISC MISCELLANE PRN (13:46)
[2016-10-24] MEDS ORDERED: INSULIN PUMP BASAL RATES 1 EACH MISC MISCELLANE PRN (13:46)
[2016-10-24] MEDS ORDERED: INSPUCOR MISCELLANE PRN (13:46)
[2016-10-24] MEDS ORDERED: IPRATROPIUM-ALBUTEROL 3 ML NEB INHALATION PRN (14:26)
[2016-10-24] MEDS ORDERED: Insulin Aspart (For Pump) 100 UNIT/ML VIAL SQ-PUMP SCH (14:30)
--- NOTE | 2016-10-24 15:03 | P.CNPUL ---
History of Present Illness Consult date: 10/24/16 Requesting physician: Varghese Kumar Reason for consult: COPD Chief complaint: Shortness of breath, cough, wheezing History of present illness: This is a 66-year-old white male with history of multiple medical problems including COPD, however the patient is not O2 dependent, not prednisone dependent, quit smoking many years ago. Patient is also known to have history of liver transplant, this was done at [facility] about [address] Morley history of hepatitis C, and history of hepatic carcinoma. Patient is also known to have history of obstructive sleep apnea, maintained on CPAP. Hypertension, diabetes, coronary artery disease, patient was recently admitted to the hospital overnight with an episode of diverticulitis. Discharge home on antibiotics, and did well from the GI perspective. However over the last 1 week , patient has been on many different courses of antibiotics for symptoms of cough wheezing shortness of breath. Cough is productive with yellow phlegm. Looking at the antibiotics he received by his primary care physician included Ceftin, Augmentin, and Flagyl. Patient saw his primary care physician on follow -up, and he wasn't improving much, hence he recommended that he goes to the ER. Seen here last night, chest x-ray showed no evidence of pneumonia. Admitted, and this consult was initiated. Patient denies any headaches or blurred vision no dizziness. Has pulmonary symptoms as noted above. Denies any chest pain, palpitations, diaphoresis, angina, denies any nausea vomiting abdominal pain no melena no hematemesis. No dysuria and no frequency no urgency. No symptoms of osteoarthritis. He does have symptoms of obstructive sleep apnea maintained on CPAP. Denies any symptoms of depression. Review of Systems 14 point review of systems were obtained, please refer to pertinent positives and negatives as noted in HPI. Past Medical History Past Medical History: Coronary Artery Disease (CAD), Cancer, Chest Pain / Angina , COPD, Diabetes Mellitus, Hypertension, Liver Disease, Prostate Disorder, Sleep Apnea/CPAP/BIPAP Additional Past Medical History / Comment(s): CPAP, hx 40%blockage heart, recent episode of chest pain while shoveling snow, insulin pump, hep C, skin cancer on leg, liver cancer History of Any Multi-Drug Resistant Organisms: None Reported Past Surgical History: Orthopedic Surgery Additional Past Surgical History / Comment(s): Liver transplant Past Anesthesia/Blood Transfusion Reactions: No Reported Reaction Past Psychological History: No Psychological Hx Reported Smoking Status: Former smoker Past Alcohol Use History: None Reported Past Drug Use History: None Reported - Past Family History Father Family Medical History: Congestive Heart Failure (CHF), Coronary Artery Disease (CAD) Additional Family Medical History / Comment(s): from CHF mother Family Medical History: Cancer Additional Family Medical History / Comment(s): ovarian Medications and Allergies Home Medications Medication Instructions Recorded Confirmed Type Aspirin 81 mg PO HS 07/04/14 10/23/16 History Cetirizine HCl [Zyrtec] 10 mg PO QAM 07/04/14 10/23/16 History Tamsulosin HCl [Flomax] 0.4 mg PO HS 07/04/14 10/23/16 History Atorvastatin Calcium [Lipitor] 20 mg PO QAM 09/30/16 10/23/16 History Cholecalciferol [Vitamin D3] 2,000 unit PO DAILY 09/30/16 10/23/16 History Finasteride [Proscar] 5 mg PO DAILY 09/30/16 10/23/16 History Insulin Aspart (For Pump) [NovoLOG See Protocol SQ-PUMP CONTINUOUS 09/30/16 History (For Pump)] Magnesium Oxide [Mag-Ox] 1,200 mg PO BID 09/30/16 10/23/16 History Metoprolol Tartrate [Lopressor] 12.5 mg PO BID 09/30/16 10/23/16 History Multivitamins, Thera [Multivitamin 1 tab PO DAILY 09/30/16 10/23/16 History (formulary)] [place]-3 Fatty Acids/Fish Oil [Fish 2 cap PO DAILY 09/30/16 10/23/16 History Oil 1,000 mg Softgel] Omeprazole 20 mg PO AC-BID 09/30/16 10/23/16 History Tacrolimus [Prograf] 0.5 mg PO Q12H 09/30/16 10/23/16 History Ursodiol [Actigall] 300 mg PO BID 09/30/16 10/23/16 History Fluticasone Propionate [Flonase 2 spray EA NOSTRIL QAM 10/23/16 10/23/16 History Allergy Relief] Ipratropium-Albuterol Nebulize 3 ml INHALATION RT-QID PRN 10/23/16 10/23/16 History [Duoneb 0.5 mg-3 mg/3 ml Soln] predniSONE See Taper PO DAILY 10/23/16 10/23/16 History Pregabalin [Lyrica] 150 mg PO BID 10/24/16 10/24/16 History Allergies Allergy/AdvReac Type Severity Reaction Status Date / Time nifedipine [From Procardia] AdvReac Swelling Verified 10/23/16 22:51 Physical Exam Vitals: Vital Signs Temp Pulse Pulse Resp BP BP Pulse Ox 10/24/16 11:50 74 10/24/16 11:42 76 10/24/16 08:00 71 16 10/24/16 07:57 80 10/24/16 07:47 74 97 10/24/16 07:00 97.8 F 71 16 138/75 97 10/24/16 03:21 80 10/24/16 02:15 80 10/24/16 01:47 98.0 F 76 16 160/84 96 10/23/16 21:57 98.2 F 86 18 127/71 97 10/23/16 21:19 88 10/23/16 21:09 80 10/23/16 21:06 84 18 125/82 96 10/23/16 19:20 98.7 F 92 18 190/93 97 Intake and Output 10/23/16 10/24/16 10/24/16 22:59 06:59 14:59 Intake Total 400 Balance 400 Intake: Oral 400 Other: Voiding Method Toilet Toilet # Voids 2 1 Weight 104.326 kg Physical Exam: Revealed a 66-year-old, comfortable, in no form of respiratory distress. HEENT:[Neck is supple.] [No neck masses.] [No thyromegaly.] [No JVD.] Chest: [Slight wheezing on forced expiratory maneuver otherwise lungs are clear. No crackles, no rhonchi..] Cardiac Exam: [Normal S1 and S2, no S3 gallop, no murmur.] Abdomen: [Obese, Soft, nontender, no megaly, no rebound, no guarding, normal bowel sounds.] Extremities: [No clubbing, no edema, no cyanosis.] Neurological Exam: [No focal neurologic deficit.] Results - Laboratory Findings CBC and BMP: 10/23/16 19:10 10/23/16 19:10 PT/INR, D-dimer PT 10.2 sec (9.0-12.0) 10/23/16 19:10 INR 1.0 (<1.1) 10/23/16 19:10 D-Dimer 0.36 mg/L FEU (<0.60) 10/23/16 19:10 Abnormal lab findings: Abnormal Labs 10/23/16 10/23/16 10/23/16 19:10 19:10 19:10 Neutrophils # 8.5 H Lymphocytes # 0.8 L APTT 21.9 L Chloride 108 H Carbon Dioxide 20 L BUN 27 H Glucose 246 H POC Glucose (mg/dL) ALT 73 H 10/23/16 21:17 Neutrophils # Lymphocytes # APTT Chloride Carbon Dioxide BUN Glucose POC Glucose (mg/dL) 177 H ALT - Diagnostic Findings Chest x-ray: image reviewed (No evidence of active disease) Assessment and Plan Plan: Impression: 1 acute exacerbation of COPD 2 recent episode of purulent tracheobronchitis, no evidence of pneumonia on chest x-ray. 3 history of multiple comorbidities including diabetes, hypertension, history of liver transplant, history of liver cancer, history of hepatitis C, history of obstructive sleep apnea syndrome, history of coronary artery disease, history of liver transplant. Recommendation: Reviewed the patient's medications and they include DuoNeb, prednisone 40 mg daily, and I will go ahead and add Symbicort 160/4.52 puffs twice a day. And Mucinex as an expectorant, expect patient to be discharged home in the next 24 hours. We'll continue to follow. Reassured the patient about his chest x-ray, and discussed his condition with admitting physician Dr. Kumar. Time with Patient: Greater than 30
--- NOTE | 2016-10-24 15:59 | HP ---
DATE OF ADMISSION: 10/23/2016 PRESENTING COMPLAINT: Cough, shortness of breath. HISTORY OF PRESENTING COMPLAINT: This is a very pleasant 66-year-old patient who follows with Dr. Prabhakar in [facility]. Patient's chronic stable medical conditions include diabetes with insulin pump, hypertension, enlarged prostate, obstructive sleep apnea; uses CPAP. Patient had hepatitis C from blood transfusion, and in the process of getting Babatunde from Dr. Bindu Guerrero had an MRI and was found to have liver cancer. Patient 2 years ago underwent liver transplant at [facility] on October [address] Rdz and was also followed by dictaphone mechanic Dr. Ramos. Recently patient's LFTs have gone up a bit and patient has been having them more frequently checked; otherwise doing well. Patient 2 weeks ago was in the hospital with diverticulitis, got antibiotics, but patient has been having some cough with a little bit of brownish phlegm and has been on antibiotics per Dr. Prabhakar out of [facility]. Symptoms are still present; hence patient decided to come in. Is not able to get up much sputum. Able to tolerate a diet. No obvious fever right now. Patient also stated he has hepatitis C genotype 1-alpha. Patient has an insulin pump. REVIEW OF SYSTEMS: CONSTITUTIONAL: Tired. HEENT: Some sinus congestion. RESPIRATORY: As above. CARDIOVASCULAR: None. GASTROINTESTINAL: None. GENITOURINARY: None. MUSCULOSKELETAL: None. DERMATOLOGIC: None. HEMATOLOGIC: None. LYMPHATICS: None. PSYCHIATRY: None. NEUROLOGICAL: None. PAST HISTORY: 1. COPD. 2. Diabetes. 3. Hypertension. 4. Enlarged prostate. 5. Obstructive sleep apnea. 6. Hepatitis C. 7. Liver cancer leading to transplantation. 8. 40% coronary artery blockage per cardiac catheterization. PAST SURGICAL HISTORY: 1. Orthopedic surgery. 2. Liver transplant. 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 Patient smoked for about 10 years; stopped 20 years ago. No alcohol. FAMILY HISTORY: Congestive heart failure, coronary artery disease. HOME MEDICATIONS: 1. Lyrica 150 mg b.i.d. 2. DuoNeb q.i.d. p.r.n. 3. Flonase 2 sprays each nostril daily. 4. Prednisone taper. 5. Proscar 5 mg p.o. daily. 6. Vitamin D3, 2000 units p.o. daily. 7. Zyrtec 10 mg p.o. daily. 8. Lipitor 20 mg p.o. daily. 9. Aspirin 81 mg at bedtime. 10. Actigall 300 mg b.i.d. 11. Flomax 0.4 mg p.o. at bedtime. 12. Prograf 0.5 mg p.o. q.12. 13. Omeprazole 20 mg p.o. b.i.d. 14. Fish oil 2 capsules p.o. daily. 15. Multivitamin 1 tablet p.o. daily. 16. Lopressor 12.5 p.o. b.i.d. 17. Magnesium oxide 200 mg p.o. b.i.d. 18. Insulin pump. ALLERGIES: NIFEDIPINE. PHYSICAL EXAMINATION: VITAL SIGNS: Temperature 98.7, pulse 92, respiration 18, blood pressure 125/82, pulse ox 97% on room air. GENERAL APPEARANCE: Well built; BMI of 33. Sitting up, not in distress. EYES: Pupils equal. Conjunctivae normal. HEENT: External appearance of nose and ears normal. Oral cavity normal. NECK: JVD not raised. Mass not palpable. RESPIRATORY: Effort normal. LUNGS: Slightly decreased breath sounds. Mild wheezing. CARDIOVASCULAR: First and second sounds normal. No edema. ABDOMEN: Distended. Incisions present. Insulin pump in place. Liver and spleen not palpable. Non-tender. LYMPHATICS: No lymph node palpable in neck or axillae. PSYCHIATRY: Alert and oriented x3. Mood and affect normal. NEUROLOGICAL: Pupils equal. Cranial nerves grossly intact. Power and sensation grossly intact. INVESTIGATIONS: White count 10.1, hemoglobin 15.6. Potassium 4.3. BUN 27, creatinine 1.02. Glucose 246, 177. AST 47, ALT 73. Troponin negative. ProBNP 69. Chest x-ray does not report any abnormality. ASSESSMENT: 1. This is a patient who recently had pneumonia; currently most likely has some pneumonitis, which is actually getting better. There is no fever, no white count. Patient has a cough with some bronchospasm, probably lingering viral pneumonitis. Patient until recently had some cough and phlegm, which I think got better with outpatient antibiotics. 2. Chronic obstructive pulmonary disease in an ex-smoker with some element of exacerbation. 3. Diabetes mellitus, type 2, chronically on insulin pump. 4. Essential hypertension. 5. Benign prostatic hypertrophy. 6. Obstructive sleep apnea; uses CPAP machine. 7. Hepatitis C, genotype 1 alpha. 8. Liver transplantation at [facility] [address] Rdz. 9. Obesity; body mass index of 33. PLAN: Home medications are resumed. Patient is put on bronchodilators. Will hold off any steroids for right now. Will get an opinion from event sales manager and also get the patient to see GI, given his liver transplant. Care was discussed at length with the patient. Will also add some Claritin-D for the sinuses.
[2016-10-24] MEDS ORDERED: ZOLPIDEM 5 MG TAB PO PRN (16:21)
[2016-10-24] MEDS: INSULIN PUMP MEAL BOLUS 1 UNIT MISC MISCELLANE SCH ×2 (18:40→23:07)
[2016-10-24] MEDS: LORATADINE-PSEUDOEPH 5-120 MG 1 EACH TAB.ER.12H PO SCH (20:04)
[2016-10-24] MEDS: SYMBICORT 160-4.5 MCG INHALER INHALATION SCH ×2 (20:14→20:43)
[2016-10-24 20:19] LABS: Glucose,Whole Blood 224 mg/dL (75-99)
[2016-10-24] MEDS ORDERED: ASPIRIN 81 MG CHEW PO SCH (21:00)
[2016-10-24] MEDS ORDERED: TAMSULOSIN 0.4 MG CAP.ER.24H PO SCH (21:00)
[2016-10-24] MEDS ORDERED: ZORTRESS 0.75 MG PO SCH (21:00)
[2016-10-24] MEDS: METOPROLOL TARTRATE 12.5 MG TAB PO SCH (22:06)
[2016-10-25 07:11] LABS: Glucose,Whole Blood 116 mg/dL (75-99)
[2016-10-25 07:45] VITALS: BP 159/79; TEMP 96.9
[2016-10-25] MEDS: ATORVASTATIN 20 MG TAB PO SCH (08:36)
[2016-10-25] MEDS: ENOXAPARIN 40 MG/0.4 ML SYRINGE SQ SCH ×2 (08:36→09:41)
[2016-10-25] MEDS: URSODIOL 300 MG CAP PO SCH (08:37)
[2016-10-25] MEDS: PREGABALIN 75 MG CAP PO SCH (08:37)
[2016-10-25] MEDS: MULTIVITAMINS, THERA 1 EACH TAB PO SCH (08:38)
[2016-10-25] MEDS: CHOLECALCIFEROL 1,000 UNIT TAB PO SCH (08:38)
[2016-10-25] MEDS: FINASTERIDE 5 MG TAB PO SCH (08:39)
[2016-10-25] MEDS: FLUTICASONE 50MCG/SPRAY NASAL 16GM EA NOSTRIL SCH (08:40)
[2016-10-25] MEDS: MAGNESIUM OXIDE 400 MG TAB PO SCH (08:40)
[2016-10-25] MEDS: LORATADINE-PSEUDOEPH 5-120 MG 1 EACH TAB.ER.12H PO SCH (08:40)
[2016-10-25] MEDS: TACROLIMUS 0.5 MG CAP PO SCH (08:41)
[2016-10-25] MEDS: predniSONE 20 MG TAB PO SCH (08:41)
[2016-10-25] MEDS: METOPROLOL TARTRATE 12.5 MG TAB PO SCH (08:41)
[2016-10-25] MEDS: SYMBICORT 160-4.5 MCG INHALER INHALATION SCH (08:45)
[2016-10-25] MEDS: IPRATROPIUM-ALBUTEROL 3 ML NEB INHALATION SCH ×2 (08:45→12:00)
[2016-10-25] MEDS: INSULIN PUMP MEAL BOLUS 1 UNIT MISC MISCELLANE SCH (09:40)
[2016-10-25] MEDS: PANTOPRAZOLE 40 MG TABLET PO SCH (09:41)
--- NOTE | 2016-10-25 10:50 | P.PN ---
Subjective Principal diagnosis: Acute exacerbation of chronic obstructive pulmonary disease. This is a 66-year-old white male with history of multiple medical problems including COPD, however the patient is not O2 dependent, not prednisone dependent, quit smoking many years ago. Patient is also known to have history of liver transplant, this was done at [facility] about [address] Morley history of hepatitis C, and history of hepatic carcinoma. Patient is also known to have history of obstructive sleep apnea, maintained on CPAP. Hypertension, diabetes, coronary artery disease, patient was recently admitted to the hospital overnight with an episode of diverticulitis. Discharge home on antibiotics, and did well from the GI perspective. However over the last 1 week , patient has been on many different courses of antibiotics for symptoms of cough wheezing shortness of breath. Cough is productive with yellow phlegm. Looking at the antibiotics he received by his primary care physician included Ceftin, Augmentin, and Flagyl. Patient saw his primary care physician on follow -up, and he wasn't improving much, hence he recommended that he goes to the ER. Seen here last night, chest x-ray showed no evidence of pneumonia. Admitted, and this consult was initiated. Patient denies any headaches or blurred vision no dizziness. Has pulmonary symptoms as noted above. Denies any chest pain, palpitations, diaphoresis, angina, denies any nausea vomiting abdominal pain no melena no hematemesis. No dysuria and no frequency no urgency. No symptoms of osteoarthritis. He does have symptoms of obstructive sleep apnea maintained on CPAP. Denies any symptoms of depression. The patient is seen again today 10/25/2016 in follow-up on the oncology unit. He is awake and alert in no acute distress. He has been breathing quite a bit better today as compared to yesterday. He has a loose nonproductive cough. No chills or night sweats. He is maintaining good O2 saturations in the 90s on room air. He has been maintained on bronchodilators, Symbicort and steroids. He is anxious to go home. Objective - Vital Signs Vital signs: Vital Signs Temp 96.9 F L 10/25/16 07:00 Pulse 72 10/25/16 09:01 Resp 16 10/25/16 08:00 BP 159/79 10/25/16 07:00 Pulse Ox 96 10/25/16 07:00 Intake & Output 10/24/16 10/25/16 10/25/16 18:59 06:59 18:59 Intake Total 1120 Balance 1120 Weight 104.326 kg 104.326 kg Intake: Oral 1120 Other: Voiding Method Toilet Toilet Toilet # Voids 2 2 - Exam GENERAL EXAM: Alert, active, comfortable in no apparent distress. HEAD: Normocephalic. EYES: Normal reaction of pupils, equal size. NOSE: Clear with pink turbinates. THROAT: No erythema or exudates. NECK: No masses, no JVD. CHEST: No chest wall deformity. LUNGS: Equal air entry with faint end expiratory wheeze. Diminished. CVS: S1 and S2 normal with no audible mumurs, regular rhythm. ABDOMEN: No hepatosplenomegaly, normal bowel sounds, no guarding or rigidity. SPINE: No scoliosis or deformity SKIN: No rashes CENTRAL NERVOUS SYSTEM: No focal deficits, tone is normal in all 4 extremities. Extremities: There is no significant peripheral edema. No clubbing, no cyanosis. Peripheral pulses are intact. - Labs CBC & Chem 7: 10/23/16 19:10 10/23/16 19:10 Labs: Abnormal Lab Results - Last 24 Hours (Table) 10/24/16 10/25/16 Range/Units 20:12 07:08 POC Glucose (mg/dL) 224 H 116 H (75-99) mg/dL Assessment and Plan Plan: Impression: #1 Acute exacerbation of chronic obstructive pulmonary disease. Failed outpatient treatment. #2 Acute hypoxic respiratory failure secondary to above. #3 History of liver cancer and hepatitis C, status post liver transplant. #4 Coronary artery disease, nonobstructive. #5 Diabetes mellitus, utilizes insulin pump. #6 Hypertension. #7 Obstructive sleep apnea utilizing CPAP. #8 Remote history of smoking. #9 Diverticulitis with recent 24-hour stay for an acute episode Plan: The patient was seen and evaluated by Dr. Mcmanus. He is cleared for discharge from the pulmonary standpoint. He'll continue with a prednisone taper. He'll be maintained on bronchodilators and Symbicort. He'll follow-up in our office in 1-2 weeks' time. He is however encouraged to call sooner with any recurrence of symptoms or other questions or concerns.
--- NOTE | 2016-10-25 11:47 | CONS ---
DATE OF CONSULTATION: 10/25/2016 REASON FOR CONSULTATION: Chronic hepatitis C infection, status post liver transplant 2 years ago. HISTORY OF PRESENT ILLNESS: The patient is a 66-year-old pleasant, white male who is known to me from his previous office visits. He was diagnosed with chronic hepatitis C infection with cirrhosis of the liver several years ago and this was complicated by hepatocellular carcinoma and hence he underwent liver transplantation at [facility] about 2 years ago. Subsequently, he was treated Harvoni for 3 months but he developed a relapse. Presently follows with on a regular basis. He was admitted to the hospital with cough, shortness of breath, sputum and failed outpatient antibiotic therapy for upper respiratory infection. He was evaluated by Dr. Mcmanus and subsequently diagnosed with COPD with exacerbation and presently on steroids and antibiotics and doing much better. In fact, he will be discharged home today. He denies any abdominal pain. He had an episode of acute sigmoid diverticulitis 2 weeks ago at which time he was admitted to the hospital, treated with antibiotics and now he is doing well. He has some loose bowel movements. Denies any rectal bleeding. No nausea or vomiting. No abdominal pain. Past medical history is significant for chronic hep C/cirrhosis of the liver, status post liver transplant 2 years ago; history of hypertension, diabetes mellitus, hypercholesterolemia, gastroesophageal reflux disease, diverticulitis. Medications at home include aspirin, Zyrtec, Flomax, Lipitor, vitamin C, Proscar, Lasix, insulin pump, Lopressor, magnesium oxide, multivitamin, fish oil, Prograf, omeprazole, ( ), Flonase, Levaquin and tapering dose of prednisone. ALLERGIES: PROCARDIA. SOCIAL HISTORY: No smoking. No alcohol use. PAST SURGICAL HISTORY: Liver transplant 2 years ago. FAMILY HISTORY: Mother had some kind of cancer. Father had coronary artery disease. REVIEW OF SYSTEMS: CARDIOPULMONARY: No chest pain, shortness of breath. GENITOURINARY: No dysuria or hematuria. MUSCULOSKELETAL: Unremarkable. SKIN: Unremarkable. ENDOCRINE: Unremarkable. PSYCHIATRIC: Unremarkable. NEUROLOGY: Unremarkable. ENT/VISION: Unremarkable. CONSTITUTIONAL: No recent weight loss. No fever, chills or night sweats. On physical examination, temperature 96.9, blood pressure 159/79, pulse rate 66, afebrile. HEENT EXAMINATION: Unremarkable. Conjunctivae pink. Sclerae anicteric. Oral cavity, no lesions. NECK: No JVD or lymph node enlargement. Chest was clear to auscultation. HEART: Regular rate and rhythm. Abdomen is soft. Multiple scars. Slightly obese and nontender, nondistended. EXTREMITIES: No pedal edema. SKIN: No rashes. NEURO: Alert and oriented x3. No focal deficits. LABS: CBC with differential count is within normal limits. Basic metabolic is normal. ALT 73, AST 47. T-bili and alk phos are within normal limits. IMPRESSION: 1. Chronic hepatitis C infection with cirrhosis diagnosed several years ago complicated by hepatocellular carcinoma, status post liver transplant at [facility] 2 years ago and doing well. 2. Chronic hepatitis C infection, status post Harvoni therapy for 3 months a year ago at [facility] but subsequently had a relapse, presently being monitored very closely and being considered for another antiviral therapy, presently has been well compensated liver disease. 3. Acute tracheobronchitis on tapering doses of steroids and symptoms significantly improved. 4. Recent episode of acute diverticulitis, resolved. RECOMMENDATIONS: 1. Continue with the current antibiotics and tapering doses of steroids. 2. The patient has an appointment to see me in the office in 2 weeks from now. 3. In the meantime suggest to be a high-fiber diet. Intake fiber supplements on a regular basis. 4. In regards to chronic hepatitis C infection, he will follow at [facility] and in fact has an appointment in 2 weeks. Thank you for this consultation.
[2016-10-25 12:08] VITALS: PULSE 76
--- NOTE | 2016-10-26 15:29 | DS ---
DATE OF ADMISSION: 10/23/2016 DATE OF DISCHARGE: 10/25/2016 FINAL DIAGNOSES: 1. Chronic obstructive pulmonary disease, acute exacerbation, with, possible acute purulent tracheobronchitis. 2. History of recent pneumonia. 3. Diabetes mellitus type 2 on insulin pump. 4. Essential hypertension. 5. History of benign prostatic hypertrophy. 6. Obstructive sleep apnea, on CPAP. 7. Hepatitis C genotype 8. History of liver transplantation for hepatocellular carcinoma. 9. History of obesity. DISCHARGE DISPOSITION: Patient will be discharged in stable condition with guarded prognosis. Discharged cleared by Dr. Mcmanus and Dr. Guerrero. HISTORY OF PRESENT ILLNESS: This 66-year-old gentleman with a past medical history of multiple medical problems, admitted to the hospital with COPD acute exacerbation, with acute purulent tracheobronchitis treated symptomatically with antibiotics and bronchodilators. Patient improved significantly. On exam, vital signs are stable. CARDIOVASCULAR: S1, S2 muffled. RESPIRATORY: A few scattered rhonchi. ABDOMEN: Soft. CENTRAL NERVOUS SYSTEM: Diffusely weak. DISCHARGE ADVICE AND DIET: 1. Diet is cardiac. 2. Activity limited until follow-up. 3. Follow-up with Dr. Prabhakar in 2 to 3 days. 4. Follow-up with Dr. Mcmanus as recommended. 5. Medications will be Aspirin 81 mg q.h.s. 6. Lipitor 20 mg 7. Symbicort 160/4.5 2 puffs bid. 8. zyretic 10 mg each morning. 9. Vitamin D3 2000 daily. 10. Proscar 5 mg daily. 11. Flonase 2 sprays daily. 12. Lasix 20 mg daily p.r.n. 13. Novolog to scale. 14. Albuterol Atrovent updrafts q.i.d. and p.r.n. 15. Levaquin 250 mg p.o. daily for 5 days. 16. Magnesium oxide 1200 mg p.o. b.i.d. 17. lopressor 12.5 mg b.i.d. 18. Multivitamins one p.o. daily. 19. fish oil two capsules p.o. daily. 20. Omeprazole 20 mg b.i.d. 21. Prednisone taper that will be 40 mg daily for 3 days, 30 for 3 days, 20 for 3 days, 10 for 3 days. 22. Lyrica 150 mg p.o. b.i.d. 23. Prograf 0.5 mg p.o. b.i.d. 24. Flomax 0.4 q.h.s. 25. Actigall 300 mg p.o. b.i.d. Follow up labs, CBC, BMP with primary physician. Once again, the patient will be discharged in stable condition with guarded prognosis. MTDD
== END 2016-10-25 14:25 | disposition home or self-care (01) ==
LOC: EC 19:16 → 5ONC 21:38
PROVIDERS: ADMIT Hospitalist; ATTEND Hospitalist
DX: J44.1 Chronic obstructive pulmonary disease with (acute) exacerbation (principal); Z87.01 Personal history of pneumonia (recurrent); E11.9 Type 2 diabetes mellitus without complications; Z96.41 Presence of insulin pump (external) (internal); N40.0 Benign prostatic hyperplasia without lower urinary tract symptoms; G47.33 Obstructive sleep apnea (adult) (pediatric); Z99.89 Dependence on other enabling machines and devices; B18.2 Chronic viral hepatitis C; E66.9 Obesity, unspecified; Z68.33 Body mass index [BMI] 33.0-33.9, adult; I10 Essential (primary) hypertension; J96.01 Acute respiratory failure with hypoxia; K57.92 Diverticulitis of intestine, part unspecified, without perforation or abscess without bleeding; Z94.4 Liver transplant status; Z85.05 Personal history of malignant neoplasm of liver; I25.10 Atherosclerotic heart disease of native coronary artery without angina pectoris; Z79.82 Long term (current) use of aspirin; Z79.899 Other long term (current) drug therapy; Z79.4 Long term (current) use of insulin; Z79.51 Long term (current) use of inhaled steroids; Z88.8 Allergy status to other drugs, medicaments and biological substances; Z85.828 Personal history of other malignant neoplasm of skin; Z87.891 Personal history of nicotine dependence; E78.00 Pure hypercholesterolemia, unspecified; K21.9 Gastro-esophageal reflux disease without esophagitis; Z79.52 Long term (current) use of systemic steroids
CPT/HCPCS: 36415; 94640 ×5; 94760; 93005; 85379; 83880; 80053; 84484; 85025; 85610; 85730; 71020; 99285; G0378 ×3; S0138 ×2; J7512 ×3

== ENCOUNTER → 2016-11-24 | Outpatient (CLI) | payer OTHER ==
[2016-11-24 14:36] LABS: Blood Urea Nitrogen 26 mg/dL (9-20); Non-African American GFR(MDRD) >60 (>60 ml/min/1.73 sqM)
--- NOTE | 2016-11-24 15:27 | CT ---
EXAMINATION TYPE: CT chest abdomen w con DATE OF EXAM: 11/24/2016 COMPARISON: 09/30/2016 HISTORY: 66 year-old male liver transplant x2 years ago for chronic hepatitis C and cirrhosis. TECHNIQUE: Contiguous axial scanning of the chest and abdomen following administration of 100 ml Omni paque 300 IV contrast. Delayed images through the kidneys and coronal/sagittal reconstructions perfo rmed. CT DLP: 1803 mGycm Automated exposure control for dose reduction was used. FINDINGS: CHEST: The heart is normal size without pericardial effusion. Coronary vessel calcifications are present in the remarkable for coronary artery disease. Mild atherosclerotic calcifications are present throughout the aorta with conventional arch vessel br anching anatomy and mild ectasia/aneurysm of the upper descending thoracic aorta at 3.2 cm. No thoracic lymphadenopathy by CT size criteria. Subpleural reticulations within the lungs suggests some fibrotic changes. Some mild scattered emphyse ma also seems to been present. No consolidation or pleural effusion. ABDOMEN: Redemonstrated is irregular hypodense lesion within the right hepatic lobe. This measures 2.0 cm vers us 1.9 cm on 09/30/2016. Possible partial patchy peripheral fill in on the delayed kidney images. No ot her focal liver lesion. There are postsurgical changes along the IVC of liver transplantation. Portal vein is patent. No biliary ductal dilatation. Adrenal glands, kidneys, spleen, and pancreas appear within normal limits. No dilated small bowel, free fluid, or free air. Normal appendix. There is a small omental fat-containing hernia along the left paramedian upper to mid abdomen that re faith bounded by the external fashion. The hernia measures up to 4.0 cm wide and 3.0 cm craniocaudal. Mild diverticulosis at the proximal sigmoid. There is a 3.0 cm fat density lesion along the anterior middle mentum, axial image 84, stable from 09/30/2016, probably an area of fat necrosis. Bones: Osseous destructive process. IMPRESSION: 1. STATUS POST LIVER TRANSPLANTATION. AN IRREGULAR HYPODENSE LESION IN THE RIGHT HEPATIC LOBE IS AGAI N SEEN AND IS STABLE TO MINIMALLY LARGER MEASURING 2.0 CM VERSUS 1.9 CM ON 09/30/2016. THERE MAY BE MIN IMAL PERIPHERAL PATCHY FILL-IN. CONTINUED FOLLOW-UP RECOMMENDED TO ENSURE STABILITY. IN THE MEANTIME, CORRELATION WITH TUMOR MARKERS INCLUDING AFP AND CA-19-9. 2. SOME CHRONIC APPEARING CHANGES OF MILD INTERSTITIAL FIBROSIS.
== END | disposition home or self-care (01) ==
LOC: RADCTMAIN 13:51
PROVIDERS: ATTEND Transplant Surgery
DX: K76.89 Other specified diseases of liver (principal); C22.0 Liver cell carcinoma; Z94.4 Liver transplant status
CPT/HCPCS: 82565; 84520; 71260; 74160; 36415; Q9967

== ENCOUNTER 2017-01-14 07:59 | Day surgery (SDC) | payer OTHER ==
[2017-01-12 15:52] VITALS: BMI 33.8
[~2017-01-14 07:59] MED LIST: LACTATED RINGERS 1,000 ML IV SCH; LIDOCAINE 1% 20 ML VIAL (10MG/ML) FOR IV START INTRADERMA PRN
[2017-01-14 08:20] VITALS: RESP 16; TEMP 97.8
[2017-01-14] MEDS ORDERED: fentaNYL (PF) 50 MCG/ML 2 ML AMP ONE (08:38)
[2017-01-14] MEDS ORDERED: PROPOFOL 10 MG/ML 20 ML VIAL IV ONE (08:38)
[2017-01-14] MEDS ORDERED: MIDAZOLAM 2 MG/2 ML VIAL ONE (08:38)
[2017-01-14 08:40] LABS: Glucose,Whole Blood 136 mg/dL (75-99)
[2017-01-14 08:55] VITALS: PULSE 59
--- NOTE | 2017-01-14 08:55 | P.PCN ---
Date of Procedure: 01/14/17 Preoperative Diagnosis: Postoperative Diagnosis: Procedure(s) Performed: BRIEF HISTORY: Patient is a 66-year-old pleasant white male, scheduled for an elective colonoscopy as a part of evaluation of lower abdominal pain and recent episode of acute diverticulitis for which she was treated with antibiotics 2 months ago. He does have some change in bowel habits with alternating diarrhea and constipation but denies any rectal bleeding. PROCEDURE PERFORMED: Colonoscopy. PREOPERATIVE DIAGNOSIS: Lower abdominal pain and change in bowel habits. IV sedation per Anesthesia. PROCEDURE: After informed consent was obtained, the patient, was brought into the endoscopy unit. IV sedation was administered by Anesthesia under continuous monitoring. Digital rectal examination was normal. Initially the Olympus CF- 160 flexible video colonoscope was then inserted in the rectum, gradually advanced into the cecum without any difficulty. Careful examination was performed as the scope was gradually being withdrawn. Ileocecal valve and the appendiceal orifice were visualized and appeared normal. Prep was excellent. Mucosa of the cecum, ascending colon, transverse colon, descending colon, sigmoid colon, and rectum appeared normal. Scattered sigmoid diverticulosis seen. Retroflexion was performed in the rectum and no lesions were seen. The patient tolerated the procedure well. IMPRESSION: Normal-appearing colon from rectum to cecum no evidence of colorectal neoplasia. Scattered Sigmoid diverticulosis. RECOMMENDATIONS: Findings of this examination were discussed with the patient as well as his family. He was advised to be a high-fiber diet. He can have a repeat Green colonoscopy in 10 years Implants: Indications for Procedure: Operative Findings: Description of Procedure:
[2017-01-14 09:08] LABS: Glucose,Whole Blood 132 mg/dL (75-99)
[2017-01-14 09:10] VITALS: BP 116/74
== END 2017-01-14 09:56 | disposition home or self-care (01) ==
LOC: ORWHC2ENDO 07:59
PROVIDERS: ATTEND Internal Medicine Gastroenterology
DX: K57.30 Diverticulosis of large intestine without perforation or abscess without bleeding (principal); R10.30 Lower abdominal pain, unspecified; R19.4 Change in bowel habit; N40.0 Benign prostatic hyperplasia without lower urinary tract symptoms; I10 Essential (primary) hypertension; E11.9 Type 2 diabetes mellitus without complications; Z79.4 Long term (current) use of insulin; Z94.4 Liver transplant status; Z79.899 Other long term (current) drug therapy; Z79.52 Long term (current) use of systemic steroids
CPT/HCPCS: 45378; J2250; J3010; J2704

== ENCOUNTER → 2017-05-28 | Outpatient (CLI) | payer OTHER ==
[2017-05-28 07:38] LABS: Anion Gap 5 mmol/L; Blood Urea Nitrogen 23 mg/dL (9-20); Calcium 9.4 mg/dL (8.4-10.2); Carbon Dioxide 31 mmol/L (22-30); Chloride 104 mmol/L (98-107); Glucose 183 mg/dL (74-99); Potassium 4.3 mmol/L (3.5-5.1); Sodium 140 mmol/L (137-145)
--- NOTE | 2017-05-28 09:30 | CT ---
EXAMINATION TYPE: Dual phase liver CT DATE OF EXAM: 05/28/2017 COMPARISON: 11/24/2016 HISTORY: 66-year-old male hepatocellular carcinoma, history of liver transplant, hep c TECHNIQUE: Contiguous axial scanning of the abdomen and pelvis before and after administration of 100 ml Omnipaque 300 IV contrast. Delayed images through the kidneys and coronal/sagittal reconstructio ns performed. CT DLP: 2600 mGycm Automated exposure control for dose reduction was used. FINDINGS: Heart is normal size without pericardial effusion. Mild interstitial thickening and patchy areas of a telectasis in the lower lungs. No pleural effusion. Tiny hiatal hernia. Postsurgical changes of liver transplantation. The transplanted liver is normal size. There is redemo nstration of a vague irregular hypodense lesion within segment 7 posterior right liver lobe. This is relatively unchanged measuring 2.0 cm and seems to become more defined on the portal venous phase sug gesting some possible washout. No other focal liver lesion. Portal venous system is patent. No biliary ductal dilatation. Gallbladder surgically absent. Adrenal glands, kidneys, and pancreas appear within normal limits. Spleen is upper limits of normal i n size at 13.4 cm. No dilated small bowel, free fluid, or free air. No mesenteric or retroperitoneal lymphadenopathy. Stable 3 cm ovoid area of central fat density and peripheral soft tissue density and some incomplete calcifications. Possible sequela of prior omental infarct or prior epiploic appendagitis. Bones: Degenerative changes lower lumbar spine and endplate spondylosis throughout. No osseous destru ctive process. IMPRESSION: 1. STABLE 2 CM IRREGULAR LESION WITHIN SEGMENT 7 RIGHT LIVER LOBE. ON THE PRESENT EXAM, THE AREA BECO MES MORE DEFINED ON THE PORTAL VENOUS PHASE MAKING IT DIFFICULT TO EXCLUDE SOME ACCELERATED WASHOUT. HOWEVER, GIVEN STABILITY OF THE LESION, RECOMMEND CONTINUED FOLLOW-UP AND CORRELATION WITH TUMOR ASHLEY ERS. 2. STATUS POST LIVER TRANSPLANTATION.
== END | disposition home or self-care (01) ==
LOC: RADCTMAIN 06:53
PROVIDERS: ATTEND Internal Medicine
DX: C22.0 Liver cell carcinoma (principal); Z94.4 Liver transplant status
CPT/HCPCS: 80048; 74170; 36415; Q9967

== ENCOUNTER → 2018-09-06 | Outpatient (CLI) | payer BC ==
[2018-09-06 13:52] LABS: HCT 45.1 % (39.0-53.0); HGB 15.5 gm/dL (13.0-17.5); MCH 30.5 pg (25.0-35.0); MCHC 34.3 g/dL (31.0-37.0); MCV 88.7 fL (80.0-100.0); Mean Platelet Volume 7.5; Platelet Count 163 k/uL (150-450); RBC 5.08 m/uL (4.30-5.90); RDW 12.9 % (11.5-15.5); WBC 7.7 k/uL (3.8-10.6)
[2018-09-06 13:57] LABS: Partial Thromboplastin Time 25.3 sec (22.0-30.0); Prothrombin Time 10.7 sec (9.0-12.0)
[2018-09-06 14:08] LABS: Appearance,Urine Clear (Clear); Bilirubin,Urine Negative (Negative); Blood,Urine Negative (Negative); Color,Urine Yellow; Glucose,Urine (UA) Negative (Negative); Ketones,Urine Negative (Negative); Leukocyte Esterase,Urine Negative (Negative); Nitrite,Urine Negative (Negative); PH, Urine 5.5 (5.0-8.0); Protein,Urine Trace (Negative); Specific Gravity,Urine 1.027 (1.001-1.035); Urobilinogen,Urine <2.0 mg/dL (<2.0)
[2018-09-06 14:12] LABS: ALT 35 U/L (21-72); AST 30 U/L (17-59); Albumin 4.1 g/dL (3.5-5.0); Alkaline Phosphatase 60 U/L (38-126); Anion Gap 6 mmol/L; Blood Urea Nitrogen 22 mg/dL (9-20); Carbon Dioxide 28 mmol/L (22-30); Chloride 107 mmol/L (98-107); Glucose 128 mg/dL (74-99); Potassium 4.7 mmol/L (3.5-5.1); Sodium 141 mmol/L (137-145); Total Bilirubin 0.7 mg/dL (0.2-1.3); Total Protein 6.6 g/dL (6.3-8.2)
== END ==
LOC: LABPAT 11:09
PROVIDERS: ATTEND Orthopaedic Surgery
DX: Z01.818 Encounter for other preprocedural examination (principal); Z01.812 Encounter for preprocedural laboratory examination
CPT/HCPCS: 80053; 81003; 85027; 85610; 85730; 87070; 93005

== ENCOUNTER 2018-09-17 07:41 | Inpatient (IN) | payer BC, OTHER ==
[2018-09-07 15:05] VITALS: BMI 34.4
[~2018-09-17 07:41] MED LIST changes: +ACETAMINOPHEN TAB 500 MG TAB PO ONE; -LACTATED RINGERS 1,000 ML IV SCH; -LIDOCAINE 1% 20 ML VIAL (10MG/ML) FOR IV START INTRADERMA PRN; +MELOXICAM 7.5 MG TAB PO ONE; +MORPHINE SULFATE 4 MG/ML SYRINGE IV PRN; +ONDANSETRON 4 MG/2 ML VIAL IVP ONE; +ONDANSETRON 4 MG/2 ML VIAL IVP PRN; +TRANEXAMIC ACID 1,000 MG in SODIUM CHLORIDE 0.9% 100 ML IVPB ONE; +ceFAZolin IN SWFI 2 GM/20 ML SYRINGE IVP ONE
[2018-09-17] MEDS ORDERED: ROPIVACAINE 246.25 MG, EPINEPHrine 0.5 MG, KETOROLAC 30 MG, cloNIDine HCL/PF 80 MCG, WA... MISCELLANE ONE ×5 (08:02)
[2018-09-17 08:46] LABS: Glucose,Whole Blood 149 mg/dL (75-99)
[2018-09-17] MEDS: LACTATED RINGERS 1,000 ML IV SCH ×3 (08:47→19:50)
[2018-09-17] MEDS ORDERED: fentaNYL (PF) 50 MCG/ML 2 ML AMP IV ONE (08:53)
[2018-09-17] MEDS ORDERED: MIDAZOLAM (PF) 2 MG/2 ML VIAL IV ONE (08:53)
--- NOTE | 2018-09-17 09:22 | P.ONQ ---
Anesthesiology Proc Note - PNB - Peripheral Nerve Block Performed Left Adductor Canal Infusion Time Out Performed: Yes Procedure Start Time: 08:53 Procedure Stop Time: 08:59 Indication: Acute Post-Operative Pain, Analgesia, Requested by physician Sedation Type: Sedate with meaningful contact maintained Preparation: Sterile Prep Position: Supine Catheter: Indwelling Needle Types: On-Q Needle Size: 100mm (4") Needle Gauge: 21 Technique: Ultrasound Injectate: 0.5% Ropivacaine (see comment for volume) (20cc) Blood Aspirated: No Pain Paresthesia on Injection Noted: No Resistance on Injection: Normal Events: Uneventful and Well Tolerated
[2018-09-17] MEDS ORDERED: PROPOFOL 10 MG/ML 20 ML VIAL IV ONE (10:38)
[2018-09-17] MEDS ORDERED: SODIUM CHLORIDE 0.9% 100 ML BAG ONE (10:38)
[2018-09-17] MEDS ORDERED: PHENYLEPHRINE-0.9% NACL SYG 1 MG/10 ML SYRINGE ONE (10:38)
[2018-09-17] MEDS ORDERED: TRANEXAMIC ACID 1,000 MG/10 ML VIAL ONE (10:38)
[2018-09-17] MEDS ORDERED: ePHEDrine SULFATE/0.9% NACL/PF 50 MG/5 ML SYRINGE IV ONE (10:38)
[2018-09-17] MEDS ORDERED: MIDAZOLAM 2 MG/2 ML VIAL ONE (10:38)
[2018-09-17] MEDS ORDERED: LACTATED RINGERS 1,000 ML IV ONE ×2 (12:58)
[2018-09-17] MEDS ORDERED: BISACODYL 10 MG SUPP RECTAL PRN (13:20)
[2018-09-17] MEDS ORDERED: ONDANSETRON 4 MG/2 ML VIAL IVP PRN (13:20)
[2018-09-17] MEDS ORDERED: NALOXONE 0.4 MG/ML 1 ML VIAL IV PRN (13:20)
[2018-09-17] MEDS ORDERED: hydrOXYzine PAMOATE 25 MG CAP PO PRN (13:20)
[2018-09-17] MEDS ORDERED: HYDROmorphone 0.5 MG/0.5 ML SYRINGE IVP PRN ×2 (13:20)
[2018-09-17] MEDS ORDERED: NA PHOS,M-B/NA PHOS,DI-BA 133 ML ENEMA RECTAL PRN (13:20)
[2018-09-17] MEDS ORDERED: MAGNESIUM HYDROXIDE 2,400 MG/10 ML CUP PO PRN (13:20)
[2018-09-17] MEDS ORDERED: ROPIVACAINE 1,100 MG, SODIUM CHLORIDE 0.9% 500 ML 330 ML MISCELLANE PRN ×2 (13:42)
[2018-09-17] MEDS: HYDROmorphone 0.5 MG/0.5 ML SYRINGE IVP PRN ×6 (13:49→23:50)
--- NOTE | 2018-09-17 13:59 | XR ---
EXAMINATION TYPE: XR knee limited LT DATE OF EXAM: 09/17/2018 CLINICAL HISTORY: Left knee pain and arthritis status post total knee replacement. TECHNIQUE: Portable AP and crosstable lateral views of the left knee are obtained immediately postop eratively. COMPARISON: None FINDINGS: Metallic hardware from total left knee arthroplasty is seen and appears satisfactory in al ignment and position. There is evidence of recent surgery with diffuse subcutaneous gas and soft tis kavon swelling noted. IMPRESSION: METALLIC HARDWARE FROM TOTAL LEFT KNEE ARTHROPLASTY IS SATISFACTORY IN ALIGNMENT.
[2018-09-17] MEDS: ceFAZolin IN SWFI 2 GM/20 ML SYRINGE IVP SCH (16:31)
[2018-09-17] MEDS: HYDROcodone/APAP 7.5-325MG 1 EACH TAB PO PRN ×2 (16:31→23:02)
[2018-09-17 20:15] LABS: Glucose,Whole Blood 153 mg/dL (75-99)
[2018-09-17] MEDS ORDERED: SENNOSIDES-DOCUSATE SODIUM 1 EACH TAB PO SCH (21:00)
[2018-09-17] MEDS ORDERED: INSULIN ASPART (NovoLOG) 100 UNIT/ML VIAL SQ PRN (21:49)
[2018-09-17] MEDS ORDERED: INSPUCOR MISCELLANE PRN (21:49)
[2018-09-17] MEDS ORDERED: TEMAZEPAM 15 MG CAP PO PRN (22:00)
[2018-09-17] MEDS ORDERED: NON-FORMULARY DRUG (Omega-3 Fatty Acids/Fish Oil [Fish Oil 1,000 Mg Softgel] 1 CAP) PO SCH (22:30)
[2018-09-17] MEDS ORDERED: ATORVASTATIN 10 MG TAB PO SCH (22:30)
[2018-09-17] MEDS ORDERED: ALBUTEROL NEBULIZED 2.5 MG/3 ML INHALATION PRN (22:45)
[2018-09-17] MEDS: MYCOPHENOLATE MOFETIL 250 MG CAP PO SCH (22:56)
[2018-09-17] MEDS: PREGABALIN 75 MG CAP PO SCH (22:56)
[2018-09-17] MEDS: METOPROLOL TARTRATE 12.5 MG TAB PO SCH (22:56)
[2018-09-17] MEDS: CALCIUM POLYCARBOPHIL 625 MG TAB PO SCH (22:56)
[2018-09-17] MEDS: MAGNESIUM OXIDE 400 MG TAB PO SCH (22:56)
[2018-09-17] MEDS: TACROLIMUS 1 MG CAP PO SCH (22:56)
[2018-09-17] MEDS ORDERED: TAMSULOSIN 0.4 MG CAP.ER.24H PO SCH (23:00)
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
[2018-09-18] MEDS: LACTATED RINGERS 1,000 ML IV SCH ×2 (00:08→09:54)
[2018-09-18] MEDS: ceFAZolin IN SWFI 2 GM/20 ML SYRINGE IVP SCH (01:01)
[2018-09-18] MEDS: HYDROmorphone 0.5 MG/0.5 ML SYRINGE IVP PRN ×2 (02:49→05:37)
[2018-09-18] MEDS: HYDROcodone/APAP 7.5-325MG 1 EACH TAB PO PRN ×3 (04:32→15:49)
--- NOTE | 2018-09-18 06:33 | P.PN ---
Progress Note - Text Progress Note Date: 09/18/18 Postoperative day # 1 status post total knee arthroplasty, under spinal anesth esia, and adductor canal catheter placed for postoperative analgesia. Currently on ropivacaine 0.2% 8 mL per hour with continuous infusion. There is no erythema, and there is no tenderness at site of catheter insertion. VAS: 2/10 Breakthrough Meds: When necessary Percocet Complications: None . Plan: Plan is to continue: Plans to continue the current settings. Patient will go home as planned.
[2018-09-18 07:25] LABS: Glucose,Whole Blood 121 mg/dL (75-99)
[2018-09-18 07:56] LABS: Basophils % (A) 0 %; Eosinophils # (A) 0.1 k/uL (0-0.7); Eosinophils % (A) 1 %; HCT 42.6 % (39.0-53.0); Lymphocytes # (A) 1.1 k/uL (1.0-4.8); Lymphocytes % (A) 11 %; MCH 29.8 pg (25.0-35.0); MCHC 32.9 g/dL (31.0-37.0); MCV 90.7 fL (80.0-100.0); Monocytes % (A) 10 %; Neutrophils # (A) 7.4 k/uL (1.3-7.7); Neutrophils % (A) 76 %; Platelet Count 150 k/uL (150-450); RDW 12.9 % (11.5-15.5); WBC 9.8 k/uL (3.8-10.6)
[2018-09-18] MEDS ORDERED: SYMBICORT 160-4.5 MCG INHALER INHALATION SCH (08:00)
[2018-09-18] MEDS ORDERED: MELOXICAM 7.5 MG TAB PO SCH (09:00)
[2018-09-18] MEDS ORDERED: RIVAROXABAN 10 MG TAB PO SCH (09:00)
[2018-09-18 09:23] VITALS: RESP 12
[2018-09-18] MEDS: MULTIVITAMINS, THERA 1 EACH TAB PO SCH ×2 (09:41→10:17)
[2018-09-18] MEDS: FINASTERIDE 5 MG TAB PO SCH ×2 (09:41→10:16)
[2018-09-18] MEDS: PREGABALIN 75 MG CAP PO SCH ×2 (09:41→10:17)
[2018-09-18] MEDS: TACROLIMUS 1 MG CAP PO SCH ×2 (09:42→11:40)
[2018-09-18] MEDS: CHOLECALCIFEROL 1,000 UNIT TAB PO SCH ×2 (09:44→10:16)
[2018-09-18] MEDS: MYCOPHENOLATE MOFETIL 250 MG CAP PO SCH ×2 (09:44→10:17)
[2018-09-18] MEDS: MAGNESIUM OXIDE 400 MG TAB PO SCH ×2 (09:44→10:16)
[2018-09-18] MEDS: CALCIUM POLYCARBOPHIL 625 MG TAB PO SCH ×2 (09:44→10:16)
[2018-09-18] MEDS: METOPROLOL TARTRATE 12.5 MG TAB PO SCH ×2 (09:47→10:17)
--- NOTE | 2018-09-18 10:24 | P.DS ---
Providers Date of admission: 09/17/18 07:41 Expected date of discharge: 09/18/18 Attending physician: Juice Nunes Consults: 09/17/18 15:03 Consult Physician Routine Consulting Provider: Varghese Kumar Consult Reason/Comments: medical management Do you want consulting provider notified?: Yes Primary care physician: Rico Prabhakar - Discharge Diagnosis(es) (1) S/P total knee arthroplasty Current Visit: Yes Status: Acute (2) Left knee pain Current Visit: Yes Status: Acute (3) History of hypertension Current Visit: Yes Status: Acute (4) History of heart disease Current Visit: Yes Status: Acute (5) History of type 2 diabetes mellitus Current Visit: Yes Status: Acute (6) Hx of liver transplant Current Visit: No Status: Acute Hospital Course: This is a pleasant 68-year-old male who presented with osteoarthritis of the left knee who failed outpatient conservative therapy. He was admitted for a left total knee arthroplasty performed by Dr. Nunes. The patient tolerated the procedure well and did well postoperatively. His pain has been adequately controlled. He's been able to ambulate the steps and increased mobility within the bed and in the room without significant difficulty. Patient feels he is ready for discharge home today. Condition on day of discharge stable. Patient will be discharged home. Patient was cleared preoperatively for surgery by Dr. Prabhakar. Patient currently denies any nausea, vomiting, fever, or chills. Patient is eating and voiding freely without difficulty. Case management is currently working on home care as well as set up with a continuous passive motion machine. He should use his CPM machine approximately 5-6 hours per day. Patient may weight-bear as tolerated on the left lower e xtremity with the assistance of a walker. Patient should keep dressing over the left knee clean, dry, and intact. He may shower if no drainage from incision site. Prescriptions have been written for [place] 7.5 mg/325 mg, Senokot, Xarelto, and aspirin. He should take his medications as prescribed. Patient has a medical history which includes hepatitis, hypertension, heart disease, diabetes type 2, and history of liver transplant. Physical Exam Total Knee Arthroplasty: Status post surgical day number 1 Patient is awake, alert, and oriented 3 Vital signs stable Good chest excursion with deep inspiration and expiration Evidence of well-healed incisions over the abdomen from previous liver transplant No signs or symptoms of DVT; no calf pain Some mild generalized pain with palpation around the surgical site Dressing over the left knee is clean, dry, and intact; no erythema, purulence, or signs of infection Patient has full foot and ankle motion without difficulty bilateral lower extremities Dorsiflexion, plantar flexion, and extensor hallucis longus positive sustained bilaterally Neurovascular status left lower extremity intact Procedures: Left total knee arthroplasty Patient Condition at Discharge: Stable Plan - Discharge Summary Discharge Rx Participant: No New Discharge Prescriptions: New Aspirin [Adult Low Dose Aspirin EC] 81 mg PO DAILY #1 tablet. HYDROcodone/APAP 7.5-325MG [[place] 7.5-325] 1 - 2 tab PO Q4-6H PRN #50 tab PRN Reason: Pain Sennosides-Docusate Sodium [Senokot-S] 1 tab PO BID #60 tablet Rivaroxaban [Xarelto] 10 mg PO DAILY #5 tab No Action Tamsulosin HCl [Flomax] 0.4 mg PO HS Cetirizine HCl [Zyrtec] 10 mg PO QAM Aspirin 81 mg PO HS Multivitamins, Thera [Multivitamin (formulary)] 1 tab PO DAILY Metoprolol Tartrate [Lopressor] 12.5 mg PO BID Magnesium Oxide [Mag-Ox] 1,200 mg PO BID [place]-3 Fatty Acids/Fish Oil [Fish Oil 1,000 mg Softgel] 1 cap PO BID Finasteride [Proscar] 5 mg PO DAILY Cholecalciferol [Vitamin D3] 2,000 unit PO DAILY Insulin Aspart (For Pump) [NovoLOG (For Pump)] See Protocol SQ-PUMP CONTINUOUS Atorvastatin Calcium [Lipitor] 10 mg PO HS Pregabalin [Lyrica] 150 mg PO BID Budesonide-Formot 160-4.5 Mcg [Symbicort 160-4.5 Mcg Inhaler] 2 puff INHALATION RT-BID #1 puff Calcium Polycarbophil [Fibercon] 625 mg PO BID Tacrolimus [Prograf] 2 mg PO Q12H Mycophenolate Mofetil [Cellcept] 250 mg PO BID Albuterol Nebulized [Ventolin Nebulized] 2.5 mg INHALATION Q6H PRN PRN Reason: Dyspnea Discharge Medication List Aspirin 81 mg PO HS 07/04/14 [History] Cetirizine HCl [Zyrtec] 10 mg PO QAM 07/04/14 [History] Tamsulosin HCl [Flomax] 0.4 mg PO HS 07/04/14 [History] Atorvastatin Calcium [Lipitor] 10 mg PO HS 09/30/16 [History] Cholecalciferol [Vitamin D3] 2,000 unit PO DAILY 09/30/16 [History] Finasteride [Proscar] 5 mg PO DAILY 09/30/16 [History] Insulin Aspart (For Pump) [NovoLOG (For Pump)] See Protocol SQ-PUMP CONTINUOUS 09/30/16 [History] Magnesium Oxide [Mag-Ox] 1,200 mg PO BID 09/30/16 [History] Metoprolol Tartrate [Lopressor] 12.5 mg PO BID 09/30/16 [History] Multivitamins, Thera [Multivitamin (formulary)] 1 tab PO DAILY 09/30/16 [History] [place]-3 Fatty Acids/Fish Oil [Fish Oil 1,000 mg Softgel] 1 cap PO BID 09/30/16 [History] Pregabalin [Lyrica] 150 mg PO BID 10/24/16 [History] Budesonide-Formot 160-4.5 Mcg [Symbicort 160-4.5 Mcg Inhaler] 2 puff INHALATION RT-BID #1 puff 10/25/16 [Rx] Albuterol Nebulized [Ventolin Nebulized] 2.5 mg INHALATION Q6H PRN 09/07/18 [History] Calcium Polycarbophil [Fibercon] 625 mg PO BID 09/07/18 [History] Mycophenolate Mofetil [Cellcept] 250 mg PO BID 09/07/18 [History] Tacrolimus [Prograf] 2 mg PO Q12H 09/07/18 [History] Aspirin [Adult Low Dose Aspirin EC] 81 mg PO DAILY #1 tablet. 09/17/18 [Rx] HYDROcodone/APAP 7.5-325MG [[place] 7.5-325] 1 - 2 tab PO Q4-6H PRN #50 tab 09/17/18 [Rx] Rivaroxaban [Xarelto] 10 mg PO DAILY #5 tab 09/17/18 [Rx] Sennosides-Docusate Sodium [Senokot-S] 1 tab PO BID #60 tablet 09/17/18 [Rx] Follow up Appointment(s)/Referral(s): Glenna Menchaca, PAC [PHYSICIAN FIELD ATTENDANT] - 2 Weeks [facility] Visiting Nurse, [NON-STAFF] - Ambulatory/Diagnostic Orders: Continuous Passive Motion (CPM) Machine [ZAKI.AMB1] Time Frame: 3 Weeks, Facility: [facility], Location: Case Management Activity/Diet/Wound Care/Special Instructions: 1. Weight-bear as tolerated on the left lower extremity with the assistance of a walker 2. Keep dressing over the left knee clean, dry, intact 3. May shower with no drainage from the incision site of the left knee 4. May elevate the left lower extremity plan ice over the incision site for comfort support as needed 5. Use CPM machine approximately 5-6 hours per day Discharge Disposition: HOME WITH HOME HEALTH SERVICES
[2018-09-18 11:59] LABS: Glucose,Whole Blood 130 mg/dL (75-99)
[2018-09-18 15:39] VITALS: BP 183/91; PULSE 83; TEMP 99.2
--- NOTE | 2018-09-20 04:50 | PN ---
PROGRESS NOTE DATE OF SERVICE: 09/18/2018 PRESENTING COMPLAINT: Left knee surgery. INTERVAL HISTORY: Patient is status post left knee surgery, doing well, stable. Pain is well controlled. Did work with therapy. No new issues. Is on insulin pump. REVIEW OF SYSTEMS: Done for constitutional, cardiovascular, GI, pulmonary and relevant findings as above. CURRENT MEDICATIONS: Reviewed. PHYSICAL EXAMINATION: VITAL SIGNS: Temperature 98.7, pulse 81, respirations 12, blood pressure 165/81, pulse ox 95% on room air. GENERAL APPEARANCE: Sitting up, comfortable. EYES: Pupils equal. Conjunctivae normal. NECK: JVD not raised. Mass not palpable. RESPIRATORY: Effort normal. LUNGS: Fair air entry. CARDIOVASCULAR: First and second sounds normal. No edema. ABDOMEN: Soft,nontender. Liver and spleen not palpable. Left knee in a dressing. INVESTIGATIONS: White count 9.8, hemoglobin 14. Accu-Cheks are noted. ASSESSMENT: 1. Left total knee arthroplasty. 2. Diabetes mellitus type 2, chronically on insulin pump. 3. Essential hypertension. 4. Benign prostatic hypertrophy. 5. Obstructive sleep apnea uses BiPAP. 6. Status post treatment for hepatitis C. 7. Liver cancer followed by liver transplantation. 8. 40% nonobstructive coronary artery disease per prior cardiac catheterization. 9. Obesity; BMI 34.3. PLAN: Care was discussed with the patient. The patient should follow up with his family doctor. MMRODRICKL / PATRICIAN: [id number] /
--- NOTE | 2018-10-08 08:00 | P.OP ---
Date of Procedure: 09/17/18 Procedure(s) Performed: left TKA, Nikolai PREOPERATIVE DIAGNOSIS: Left knee severe osteoarthritis with genu varum POSTOPERATIVE DIAGNOSIS: Left knee severe osteoarthritis with genu varum OPERATION: Left knee cemented total replacement arthroplasty. ANESTHESIA: Spinal ESTIMATED BLOOD LOSS: 100 ml. OPTICS ENGINEER: Glenna Menchaca PA-C (assistance with: patient positioning, retraction, exposure, hemostasis, leg positioning, implantation, irrigation, closure, dressing) COMPLICATIONS: None apparent. COMPONENTS IMPLANTED: Persona system from [place] INDICATIONS: Mr. Saldaña is a 68 year old male with a history of left knee osteoarthritis. Conservative treatment has been tried and has been unsuccessful in controlling symptoms adequately. The operation of knee replacement has been discussed at length in the office, as well as potential risks and complications. These are inclusive of, but not limited to: bleeding, infection, scarring, discomfort, blood vessel and nerve damage, need for further surgery, failure to relieve symptoms, persistence, recurrence, or worsening of problems, loosening, dislocation, wear, blood clot, pulmonary embolism, , gait dysfunction, stiffness, and other risks as discussed in the office. The patient elects to proceed and the consent form has been signed. PROCEDURE: The patient was taken to the operating room and positioned on the operating room table in the supine position. Anesthesia was initiated. Care was taken to make sure that all pressure points were adequately padded. The operative lower extremity was prepped and draped in the usual aseptic fashion using ChloraPrep. Ioban drape was used for the case and the patient received intravenous antibiotics within one hour of the incision. A pneumotourniquet and leg workman were used for the case. The limb was exsanguinated with an Esmarch bandage and the tourniquet was inflated to 350 mmHg. Time-out was called confirming the patient's identity, side, procedure and administration of antibiotics and tranexamic acid, 1 g IV. The incision was then created midline directly over the knee, carried down through skin and into the subcutaneous tissues and down to fascia. Full thickness subcutaneous medial flap was developed. Medial parapatellar arthrotomy was performed and the interior of the knee was inspected. There was end-stage osteoarthritis of the knee with a mild to moderate genu varum type deformity. The fat pad was excised and proximal medial release on the tibia was completed using meticulous dissection and a curved osteotome. The anterior cruciate ligament was taken down. Note was made of significant attrition of the anterior and significant degenerative appearance of the posterior cruciate ligaments. The exposure was excellent. The knee was flexed 90 degrees and the patella was everted. A spot was chosen on the femur approximately 1 cm anterior to the posterior cruciate ligament insertion and an intramedullary hole was created within the femur. The intramedullary guide was then set to 5 degrees of valgus. The distal cutting block was attached and pinned into position. An appropriate amount of distal femoral resection was set. The oscillating saw was then used to make the distal femoral cut. This cut was confirmed to be flat with the flat end of an osteotome. The retractors were placed around the tibia and the tibial surface was addressed. The angle and depth of resection was adjusted using an extramedullary cutting guide. The guide had a built-in 3 degree posterior slope cut. Once the cutting guide was adjusted appropriately and in line with the axis of the tibia and confirmed to be in good position in relation to the second metatarsal and transmalleolar axis, the tibial cut was then created with protection of the posterior neurovascular structures and the collateral ligaments. The tibial cut surface was removed and sized. Femoral sizing was then accomplished using anterior referencing. Care was taken to analyze the posterior condyles for signs of deficiency or severe wear, and adjustments to the guide were made, as appropriate. 3 degree external rotation pins were placed. The cutting jig for the femur was applied to these pins. The planned cuts were further analyzed prior to performing them with the oscillating saw. No femoral notching was produced. Bone fragments were removed and the cut surfaces were finished, as necessary, with a reciprocating saw. Spacer block technique was then used to confirm that the flexion and extension gaps were equal. Soft tissue releases and adjustment of the tibial and/or femoral cuts were made, as necessary, until the gaps were equal. This included release of the posterior cruciate ligament, which was tight in this patient. The femur was then further finished for a posterior cruciate ligament substituting component. Patellar resurfacing was performed using a reamer. The size of the required patellar component was estimated and the patellar surface was then reamed down to a residual thickness which would recreate the upper mattaponi thickness with the component. The exact placement of the patellar component was adjusted for position based on preoperative x-rays and intraoperative findings. Prior to placing trial components, anesthetic solution consisting of ropivicaine with epinephrine, ketorolac, and clonidine was injected carefully and methodically in a grid pattern using aspiration technique into the soft tissue around the knee circumferentially, starting with the deeper tissues first and progressing to fascia, and then finally the skin/subcutaneous tissue. Particular care was taken when injecting the posterior capsule. The trial components were inserted. The tibial tray was allowed to self center and the patella was noted to track very well. The position of the tibial component was marked and the tibia was then finished for a stemmed tibial co mponent. Cement was mixed on the back table and applied to the final components. Trial components were removed and the cut surfaces of the bone were pulse lavaged thoroughly and dried. Cement was then applied to the tibial surface and pressurized into the surface using finger pressurization technique. The tibial component was then applied and excess cement was removed after it was impacted securely and noted to be flush with the cut surface. In similar fashion, the cement was applied to the cut femoral surface, pressurized in using finger pressurization and the component was impacted into place. Excess cement was removed. The polyethylene spacer was then implanted and locked into position. The patellar component was then applied in similar technique and a patellar clamp was used to hold the patella in place as the cement hardened. Once the cement had fully hardened, the knee was reinspected. Any other cement extrusion was removed and final kinematic testing showed range of motion from 0 to 130 degrees with excellent stability, both medially and laterally and appropriate alignment of the leg. Patellar tracking was excellent. The knee was then thoroughly pulse lavaged with normal saline. The tourniquet was deflated and hemostasis was obtained with electrocautery and IV tranexamic acid, 1 g given prior to inflation of the tourniquet and another gram given at the time of closure. Closure was with #2 Ethibond in the fascia and supplemented with #2 Quill, 2-0 Vicryl suture was used for the subcutaneous tissues and 3-0 Quill for the skin. Dermabond/Steri-Strips were then applied. A lightly compressive dressing was applied using Webril and an Rafael wrap. The patient was then transferred to stretcher and taken to the recovery room in stable condition. Sponge and needle counts were correct.
== END 2018-09-18 15:51 | disposition home health service (06) | DRG 470 ==
LOC: 2ORMAIN 07:41 → 4SSUR 13:23
PROVIDERS: ADMIT Orthopaedic Surgery; ATTEND Orthopaedic Surgery
PROC: 0SRD0J9 Replacement of Left Knee Joint with Synthetic Substitute, Cemented, Open Approach (ICD-10-PCS; principal; 2018-09-17 09:35)
DX: M17.12 Unilateral primary osteoarthritis, left knee (principal); Z94.4 Liver transplant status; E11.40 Type 2 diabetes mellitus with diabetic neuropathy, unspecified; I27.20 Pulmonary hypertension, unspecified; J44.9 Chronic obstructive pulmonary disease, unspecified; M21.162 Varus deformity, not elsewhere classified, left knee; G47.33 Obstructive sleep apnea (adult) (pediatric); I10 Essential (primary) hypertension; E78.5 Hyperlipidemia, unspecified; N40.0 Benign prostatic hyperplasia without lower urinary tract symptoms; I25.10 Atherosclerotic heart disease of native coronary artery without angina pectoris; E66.9 Obesity, unspecified; Z68.34 Body mass index [BMI] 34.0-34.9, adult; Z79.82 Long term (current) use of aspirin; Z79.51 Long term (current) use of inhaled steroids; Z79.4 Long term (current) use of insulin; Z96.41 Presence of insulin pump (external) (internal); Z79.899 Other long term (current) drug therapy; Z85.05 Personal history of malignant neoplasm of liver; Z86.19 Personal history of other infectious and parasitic diseases; Z87.891 Personal history of nicotine dependence; Z96.698 Presence of other orthopedic joint implants; Z86.010 Personal history of colon polyps; Z92.3 Personal history of irradiation; Z88.8 Allergy status to other drugs, medicaments and biological substances; Z82.49 Family history of ischemic heart disease and other diseases of the circulatory system; Z80.41 Family history of malignant neoplasm of ovary; Z84.1 Family history of disorders of kidney and ureter
CPT/HCPCS: 85025; 88305; 88311

== ENCOUNTER 2020-09-05 10:07 | Emergency (ER) | payer BC ==
[2020-09-05 10:47] VITALS: TEMP 98.5
--- NOTE | 2020-09-05 12:49 | ED ---
General Adult HPI - General Chief complaint: Shortness of Breath Stated complaint: Abd pain Time Seen by Provider: 09/05/20 12:20 Source: patient, RN notes reviewed, old records reviewed Mode of arrival: ambulatory Limitations: no limitations - History of Present Illness Initial comments: 70-year-old male status post liver transplant presenting for evaluation of right-sided chest pain and abdominal pain. Patient had some noticed some bruising on the right lateral abdominal wall over the past several days. He did have a coughing spell secondary to an upper respiratory infection up about one week ago. No current fevers. No central chest pain. Patient had gone to an outside emergency department yesterday but was unable to be seen secondary to her long wait times. He is presenting today with same complaint of rib pain and ecchymosis in the right abdominal wall. He is status post transplant currently on antirejection medication. - Related Data Home Medications Medication Instructions Recorded Confirmed Aspirin 81 mg PO HS 07/04/14 09/17/18 Cetirizine HCl [Zyrtec] 10 mg PO QAM 07/04/14 09/17/18 Tamsulosin HCl [Flomax] 0.4 mg PO HS 07/04/14 09/17/18 Atorvastatin Calcium [Lipitor] 10 mg PO HS 09/30/16 09/17/18 Cholecalciferol [Vitamin D3 (25 2,000 unit PO DAILY 09/30/16 09/17/18 Mcg = 1000 Iu)] Finasteride [Proscar] 5 mg PO DAILY 09/30/16 09/17/18 Insulin Aspart (For Pump) [NovoLOG See Protocol SQ-PUMP CONTINUOUS 09/30/16 09/17/18 (For Pump)] Magnesium Oxide [Mag-Ox] 1,200 mg PO BID 09/30/16 09/17/18 Metoprolol Tartrate [Lopressor] 12.5 mg PO BID 09/30/16 09/17/18 Multivitamins, Thera [Multivitamin 1 tab PO DAILY 09/30/16 09/17/18 (formulary)] [place]-3 Fatty Acids/Fish Oil [Fish 1 cap PO BID 09/30/16 09/17/18 Oil 1,000 mg Softgel] Pregabalin [Lyrica] 150 mg PO BID 10/24/16 09/17/18 Albuterol Nebulized [Ventolin 2.5 mg INHALATION Q6H PRN 09/07/18 09/17/18 Nebulized] Tacrolimus [Prograf] 2 mg PO Q12H 09/07/18 09/17/18 calcium polycarbophiL [Fibercon] 625 mg PO BID 09/07/18 09/17/18 mycophenolate mofetiL [Cellcept] 250 mg PO BID 09/07/18 09/17/18 Previous Rx's Medication Instructions Recorded Budesonide-Formot 160-4.5 Mcg 2 puff INHALATION RT-BID #1 puff 10/25/16 [Symbicort 160-4.5 Mcg Inhaler] Aspirin [Adult Low Dose Aspirin EC] 81 mg PO DAILY #1 tablet. 09/17/18 HYDROcodone/APAP 7.5-325MG [[place]armich[place] 1 - 2 tab PO Q4-6H PRN #50 tab 09/17/18 7.5-325] Rivaroxaban [Xarelto] 10 mg PO DAILY #5 tab 09/17/18 Sennosides-Docusate Sodium 1 tab PO BID #60 tablet 09/17/18 [Senokot-S] Allergies Allergy/AdvReac Type Severity Reaction Status Date / Time nifedipine [From Procardia] AdvReac Swelling Verified 09/05/20 10:47 Review of Systems ROS Statement: Those systems with pertinent positive or pertinent negative responses have been documented in the HPI. ROS Other: All systems not noted in ROS Statement are negative. Past Medical History Past Medical History: Coronary Artery Disease (CAD), Cancer, Chest Pain / Angina, COPD, Diabetes Mellitus, Hypertension, Liver Disease, Prostate Disorder, Sleep Apnea/CPAP/BIPAP Additional Past Medical History / Comment(s): CPAP, hx 40%blockage heart, insulin pump, hep C, skin cancer on leg, liver cancer History of Any Multi-Drug Resistant Organisms: None Reported Past Surgical History: Orthopedic Surgery Additional Past Surgical History / Comment(s): Liver transplant; big toe joint replaced r/t arthritis fx fibula, knee replacement Past Anesthesia/Blood Transfusion Reactions: No Reported Reaction Past Psychological History: No Psychological Hx Reported Smoking Status: Never smoker Past Alcohol Use History: None Reported Past Drug Use History: None Reported - Past Family History Father Family Medical History: Congestive Heart Failure (CHF), Coronary Artery Disease (CAD) Additional Family Medical History / Comment(s): from CHF mother Family Medical History: Cancer Additional Family Medical History / Comment(s): ovarian General Exam Limitations: no limitations General appearance: alert, in no apparent distress Head exam: Present: atraumatic, normocephalic Eye exam: Present: normal appearance, PERRL ENT exam: Present: normal exam Neck exam: Present: normal inspection. Absent: tenderness, meningismus Respiratory exam: Present: chest wall tenderness. Absent: respiratory distress Cardiovascular Exam: Present: regular rate, normal rhythm GI/Abdominal exam: Present: soft, distended, other (Ecchymosis on the right lateral abdominal wall). Absent: tenderness Extremities exam: Present: normal inspection, normal capillary refill. Absent: calf tenderness Neurological exam: Present: alert, oriented X3, CN II-XII intact. Absent: motor sensory deficit Psychiatric exam: Present: normal affect, normal mood Skin exam: Present: warm, dry, intact Course Vital Signs 09/05/20 09/05/20 09/05/20 10:41 12:29 14:26 Temperature 98.5 F Pulse Rate 88 78 Respiratory 18 16 16 Rate Blood Pressure 158/93 139/80 O2 Sat by Pulse 97 100 Oximetry Medical Decision Making - Medical Decision Making 70-year-old male with rib pain, ecchymosis on the anterior lateral abdomen. Chest x-ray performed, negative for displaced rib fracture, no pneumothorax. CT the abdomen is also performed which does show skin changes in the area of ecchymosis but no active hemorrhage or hematoma. Patient will monitor, follow with primary care physician. Return with worsening or changing symptoms. He has a normal CBC, normal CMP - Lab Data Result diagrams: 09/05/20 12:20 09/05/20 12:20 Lab Results 09/05/20 09/05/20 09/05/20 Range/Units 12:20 12:20 12:20 WBC 10.0 (3.8-10.6) k/uL RBC 5.33 (4.30-5.90) m/uL Hgb 16.9 (13.0-17.5) gm/dL Hct 48.3 (39.0-53.0) % MCV 90.7 (80.0-100.0) fL MCH 31.7 (25.0-35.0) pg MCHC 34.9 (31.0-37.0) g/dL RDW 12.5 (11.5-15.5) % Plt Count 212 (150-450) k/uL MPV 7.7 Neutrophils % 69 % Lymphocytes % 19 % Monocytes % 9 % Eosinophils % 1 % Basophils % 1 % Neutrophils # 6.9 (1.3-7.7) k/uL Lymphocytes # 1.9 (1.0-4.8) k/uL Monocytes # 0.9 (0-1.0) k/uL Eosinophils # 0.1 (0-0.7) k/uL Basophils # 0.1 (0-0.2) k/uL PT 10.7 (9.0-12.0) sec INR 1.0 (<1.2) APTT 24.7 (22.0-30.0) sec Sodium 140 (137-145) mmol/L Potassium 4.4 (3.5-5.1) mmol/L Chloride 106 (98-107) mmol/L Carbon Dioxide 24 (22-30) mmol/L Anion Gap 10 mmol/L BUN 23 H (9-20) mg/dL Creatinine 0.94 (0.66-1.25) mg/dL Est GFR (CKD-EPI)AfAm >90 (>60 ml/min/1.73 sqM) Est GFR (CKD-EPI)NonAf 83 (>60 ml/min/1.73 sqM) Glucose 181 H (74-99) mg/dL Calcium 9.6 (8.4-10.2) mg/dL Total Bilirubin 0.7 (0.2-1.3) mg/dL AST 38 (17-59) U/L ALT 30 (4-49) U/L Alkaline Phosphatase 78 (38-126) U/L Total Protein 7.3 (6.3-8.2) g/dL Albumin 4.4 (3.5-5.0) g/dL Amylase 77 (30-110) U/L Lipase 56 (23-300) U/L Blood Type Blood Type Recheck Bld Type Recheck Status Antibody Screen Spec Expiration Date 09/05/20 Range/Units 12:20 WBC (3.8-10.6) k/uL RBC (4.30-5.90) m/uL Hgb (13.0-17.5) gm/dL Hct (39.0-53.0) % MCV (80.0-100.0) fL MCH (25.0-35.0) pg MCHC (31.0-37.0) g/dL RDW (11.5-15.5) % Plt Count (150-450) k/uL MPV Neutrophils % % Lymphocytes % % Monocytes % % Eosinophils % % Basophils % % Neutrophils # (1.3-7.7) k/uL Lymphocytes # (1.0-4.8) k/uL Monocytes # (0-1.0) k/uL Eosinophils # (0-0.7) k/uL Basophils # (0-0.2) k/uL PT (9.0-12.0) sec INR (<1.2) APTT (22.0-30.0) sec Sodium (137-145) mmol/L Potassium (3.5-5.1) mmol/L Chloride (98-107) mmol/L Carbon Dioxide (22-30) mmol/L Anion Gap mmol/L BUN (9-20) mg/dL Creatinine (0.66-1.25) mg/dL Est GFR (CKD-EPI)AfAm (>60 ml/min/1.73 sqM) Est GFR (CKD-EPI)NonAf (>60 ml/min/1.73 sqM) Glucose (74-99) mg/dL Calcium (8.4-10.2) mg/dL Total Bilirubin (0.2-1.3) mg/dL AST (17-59) U/L ALT (4-49) U/L Alkaline Phosphatase (38-126) U/L Total Protein (6.3-8.2) g/dL Albumin (3.5-5.0) g/dL Amylase (30-110) U/L Lipase (23-300) U/L Blood Type A Positive Blood Type Recheck No Previous Record Bld Type Recheck Status CABO Indicated Antibody Screen NEGATIVE Spec Expiration Date 09/08/2020 - 2319 Disposition Clinical Impression: Contusion of rib on right side, Superficial bruising of abdominal wall Disposition: HOME SELF-CARE Condition: Good Instructions (If sedation given, give patient instructions): Rib Contusion (ED), Hematoma (ED) Is patient prescribed a controlled substance at d/c from ED?: No Referrals: Rico Prabhakar MD [Primary Care Provider] - 1-2 days Time of Disposition: 14:49
[2020-09-05 13:26] LABS: Basophils # (A) 0.1 k/uL (0-0.2); Basophils % (A) 1 %; Eosinophils # (A) 0.1 k/uL (0-0.7); Eosinophils % (A) 1 %; HCT 48.3 % (39.0-53.0); HGB 16.9 gm/dL (13.0-17.5); Lymphocytes # (A) 1.9 k/uL (1.0-4.8); Lymphocytes % (A) 19 %; MCH 31.7 pg (25.0-35.0); MCHC 34.9 g/dL (31.0-37.0); MCV 90.7 fL (80.0-100.0); Mean Platelet Volume 7.7; Monocytes # (A) 0.9 k/uL (0-1.0); Monocytes % (A) 9 %; Neutrophils # (A) 6.9 k/uL (1.3-7.7); Neutrophils % (A) 69 %; Platelet Count 212 k/uL (150-450); RBC 5.33 m/uL (4.30-5.90); RDW 12.5 % (11.5-15.5)
[2020-09-05 13:41] LABS: Partial Thromboplastin Time 24.7 sec (22.0-30.0); Prothrombin Time 10.7 sec (9.0-12.0)
[2020-09-05 13:53] LABS: ALT 30 U/L (4-49); AST 38 U/L (17-59); African American GFR (CKD) >90 (>60 ml/min/1.73 sqM); Albumin 4.4 g/dL (3.5-5.0); Alkaline Phosphatase 78 U/L (38-126); Amylase 77 U/L (30-110); Anion Gap 10 mmol/L; Blood Urea Nitrogen 23 mg/dL (9-20); Calcium 9.6 mg/dL (8.4-10.2); Carbon Dioxide 24 mmol/L (22-30); Chloride 106 mmol/L (98-107); Glucose 181 mg/dL (74-99); Lipase 56 U/L (23-300); Non-African American GFR(CKD) 83 (>60 ml/min/1.73 sqM); Potassium 4.4 mmol/L (3.5-5.1); Sodium 140 mmol/L (137-145); Total Bilirubin 0.7 mg/dL (0.2-1.3); Total Protein 7.3 g/dL (6.3-8.2)
--- NOTE | 2020-09-05 13:54 | XR ---
EXAMINATION TYPE: XR ribs RT w pa chest xray DATE OF EXAM: 09/05/2020 COMPARISON: 10/23/2016 TECHNIQUE: PA and lateral views submitted. HISTORY: Pain FINDINGS: Right perihilar subsegmental changes. No pleural effusion or pneumothorax. Arthropathy of the shoulde rs. No overt failure. Hypertrophic and degenerative change of the spine. Surgical clips in the abdome n. Arthropathy of the AC joints. There is a well-corticated density adjacent to the anterior lateral margin of the right ninth rib. IMPRESSION: 1. No acute displaced rib fracture.
--- NOTE | 2020-09-05 14:37 | CT ---
EXAMINATION TYPE: CT abdomen pelvis w con DATE OF EXAM: 09/05/2020 COMPARISON: 05/28/2017 INDICATION: Abdominal pain DLP: 1565.1 mGycm, Automated exposure control for dose reduction was used. CONTRAST: 100 ml mL of Isovue 300. Study performed without Oral Contrast TECHNIQUE: Axial images were obtained from above the diaphragm to the pubic rami in the axial plane a t 5 mm thick sections. Reconstructed images are reviewed on the computer in the coronal plane. FINDINGS: Limited CT sections are obtained the lung bases. The lung bases are clear. Minimal coronary artery calcification is present. CT ABDOMEN: Liver: There is a 1.3 cm simple appearing cyst measuring 16 Hounsfield units in the superior right lo be liver. Liver is otherwise unremarkable. Spleen: Normal Pancreas: Normal Adrenal glands: The adrenal glands are normal. Gallbladder: Surgically absent Kidneys: No masses are evident. No hydronephrosis is present. No cysts are present. Delayed images were obtained through the kidneys, which remain unremarkable. Aorta: Vascular calcification is within the aorta. There is a right retrocaval renal artery. Inferior vena cava: Normal. CT PELVIS: Loops of bowel within the abdomen and pelvis are normal. There is a ring of increased density adjace nt to small bowel loop within the anterior abdomen. Suture are calcified foreign body could be consid ered. This study is lateral contrast limiting bowel evaluation. There are scattered diverticuli thr ough the sigmoid colon Appendix: Normal as visualized. Urinary bladder: Normal. Genitourinary structures: Prostate is normal Osseous structures: No suspicious lytic or sclerotic lesions. IMPRESSIONS: 1. Bilateral renal cysts. 2. Calcified ring adjacent to a small bowel loop within the mid abdomen of uncertain etiology. 3. Diverticulosis without acute diverticulitis. 4. Hepatic cyst. This is more defined than previous exam. This may not be a simple cyst.
[2020-09-05 14:57] VITALS: BP 136/71; PULSE 87; RESP 18
== END 2020-09-05 14:59 | disposition home or self-care (01) ==
LOC: EC 10:07
DX: S30.1XXA Contusion of abdominal wall, initial encounter (principal); S20.211A Contusion of right front wall of thorax, initial encounter; E11.9 Type 2 diabetes mellitus without complications; I10 Essential (primary) hypertension; I25.10 Atherosclerotic heart disease of native coronary artery without angina pectoris; J44.9 Chronic obstructive pulmonary disease, unspecified; Z79.4 Long term (current) use of insulin; Z79.51 Long term (current) use of inhaled steroids; Z79.82 Long term (current) use of aspirin; Z85.05 Personal history of malignant neoplasm of liver; Z85.828 Personal history of other malignant neoplasm of skin; X58.XXXA Exposure to other specified factors, initial encounter
CPT/HCPCS: 36415; 86900; 86901; 80053; 82150; 83690; 85025; 85610; 85730; 86850; 71101; 74177; 99285; Q9967

== ENCOUNTER 2023-03-31 06:34 | Day surgery (SDC) | payer BC ==
[2023-03-27 14:20] VITALS: BMI 33.0
[~2023-03-31 06:34] MED LIST changes: -ACETAMINOPHEN TAB 500 MG TAB PO ONE; +LACTATED RINGERS 1,000 ML IV SCH; +LIDOCAINE 1% (10MG/ML) FOR IV START INTRADERMA PRN; -MELOXICAM 7.5 MG TAB PO ONE; -MORPHINE SULFATE 4 MG/ML SYRINGE IV PRN; -ONDANSETRON 4 MG/2 ML VIAL IVP ONE; -ONDANSETRON 4 MG/2 ML VIAL IVP PRN; -TRANEXAMIC ACID 1,000 MG in SODIUM CHLORIDE 0.9% 100 ML IVPB ONE; -ceFAZolin IN SWFI 2 GM/20 ML SYRINGE IVP ONE
[2023-03-31 07:19] VITALS: RESP 16; TEMP 97.2
[2023-03-31] MEDS ORDERED: PROPOFOL 10 MG/ML 20 ML VIAL IV ONE (07:46)
[2023-03-31] MEDS ORDERED: LIDOCAINE 1% INJ 10MG/ML (20 ML MDV) ONE (07:46)
--- NOTE | 2023-03-31 08:04 | P.PCN ---
Date of Procedure: 03/31/23 Procedure(s) Performed: BRIEF HISTORY: Patient is a 72-year-old pleasant white male scheduled for an elective colonoscopy as a part of screening for colon cancer. PROCEDURE PERFORMED: Colonoscopy. PREOPERATIVE DIAGNOSIS: Screening for colon cancer. IV sedation per Anesthesia. PROCEDURE: After informed consent was obtained, the patient, was brought into the endoscopy unit. IV sedation was administered by Anesthesia under continuous monitoring. Digital rectal examination was normal. Initially the Olympus CF-160 flexible video colonoscope was then inserted in the rectum, gradually advanced into the cecum without any difficulty. Careful examination was performed as the scope was gradually being withdrawn. Ileocecal valve and the appendiceal orifice were visualized and appeared normal. Prep was excellent. Mucosa of the cecum, ascending colon, transverse colon, descending colon, sigmoid colon, and rectum appeared normal. Retroflexion was performed in the rectum and no lesions were seen. The patient tolerated the procedure well. IMPRESSION: Normal-appearing colon from rectum to cecum with no evidence of colorectal neoplasia Scattered sigmoid diverticulosis. RECOMMENDATIONS: Findings of this examination were discussed with the patient as well as his family. He was advised to have a repeat screening colonoscopy in 10 years from.
[2023-03-31 08:27] VITALS: PULSE 60
[2023-03-31 08:49] VITALS: BP 153/89
== END 2023-03-31 08:49 | disposition home or self-care (01) ==
LOC: ORWHC2ENDO 06:34
PROVIDERS: ATTEND Internal Medicine Gastroenterology
DX: Z12.11 Encounter for screening for malignant neoplasm of colon (principal); K57.30 Diverticulosis of large intestine without perforation or abscess without bleeding; I10 Essential (primary) hypertension; G47.33 Obstructive sleep apnea (adult) (pediatric); Z95.5 Presence of coronary angioplasty implant and graft; K21.9 Gastro-esophageal reflux disease without esophagitis; J44.9 Chronic obstructive pulmonary disease, unspecified; F17.200 Nicotine dependence, unspecified, uncomplicated; Z88.8 Allergy status to other drugs, medicaments and biological substances; Z79.1 Long term (current) use of non-steroidal anti-inflammatories (NSAID); Z79.811 Long term (current) use of aromatase inhibitors; Z79.899 Other long term (current) drug therapy
CPT/HCPCS: 45378; J2001; J2704